=== PATIENT | female | born 1975 | race African-American/Black ===

== ENCOUNTER 2025-03-15 15:09 | Inpatient (IN) | payer MEDICAID ==
[2025-03-15] VITALS (9 sets, daily range): BP systolic 101–111; BP diastolic 63–74; PULSE 53–61; RESP 9–23; TEMP 36.22512–36.44736; O2SAT 98–100
[~2025-03-15] VITALS: Ht 167.6 cm; Wt 55.8 kg
[2025-03-15 16:20] LABS: BASOPHILS % 0.5 % (0.0-2.0); EOSINOPHILS % 0.4 % (0.0-5.0); LYMPHOCYTES % 11.4 % (20.0-50.0); MEAN PLATELET VOLUME 9.1 fl (7.4-10.4); MONOCYTES % 4.2 % (2.0-8.0); NEUTROPHILS % 83.5 % (40.0-76.0); PLATELET 85 x1000/uL (130-400); RED BLOOD CELL COUNT 1.58 mill/uL (4.2-5.4); RED CELL DISTRIBUTION WIDTH 19.3 % (11.6-14.6)
[2025-03-15 16:22] LABS: HEMOGLOBIN. 5.0 g/dL (12.0-16.0)
[2025-03-15 16:23] LABS: ADD RBC MORPHOLOGY YES; HEMATOCRIT. 17.7 % (36.0-48.0)
[2025-03-15 16:34] LABS: PLATELET ESTIMATE DECREASED
[2025-03-15 16:38] LABS: BILIRUBIN DIRECT 8.2 mg/dL (<=3.0); BILIRUBIN TOTAL 11.6 mg/dL (0.1-1.0); PROTEIN TOTAL 7.7 g/dL (6.0-8.3)
[2025-03-15 16:48] LABS: TROPONIN I HIGH SENSITIVITY 4 ng/L (3.0-34); UREA NITROGEN BLOOD 89 mg/dL (9-23)
[2025-03-15 16:49] LABS: ASPARTATE AMINOTRANSFERASE 65 IU/L (<34)
[2025-03-15] MEDS ORDERED: DEXTROSE 50% WATER 50ML SYRINGE IV ONE (16:55)
[2025-03-15 16:56] LABS: CREATININE 5.7 mg/dL (0.6-1.0)
[2025-03-15] MEDS: DEXTROSE 50% WATER 50ML SYRINGE IV ONE ×2 (17:11→19:52)
[2025-03-15] MEDS: SODIUM CHLORIDE 0.9% (SEPSIS BOLUS) IV ONE (17:19)
[2025-03-15] MEDS: SODIUM CHLORIDE 0.9% 1,000 ML IV ONE (17:20)
[2025-03-15] MEDS: DEXT 10% WATER 1,000 ML IV SCH (17:30)
[2025-03-15] MEDS: PIPERACILLIN/TAZO 3.375G/50ML 50 ML IV ONE (17:30)
[2025-03-15 18:02] LABS: TROPONIN I HIGH SENSITIVITY 4 ng/L (3.0-34)
[2025-03-15] MEDS: VANCOMYCIN 1G PREMIX 200 ML IV ONE (18:24)
[2025-03-15] MEDS ORDERED: NOREPINEPHRINE 8 MG in DEXT 5% WATER 242 ML IV PRN (18:45)
[2025-03-15 18:48] LABS: BG BASE EXCESS -21.9 mmol/L (-2.0-3.0); BG CARBOXYHEMOGLOBIN 2.5 % (0.5-1.5); BG DEOXYHEMOGLOBIN 2.6 % (0.0-5.0); BG FRACTION INSPIRED OXYGEN 21; BG HCO3 ACT 7.8 mmol/L (21.0-28.0); BG METHEMOGLOBIN 0.1 % (0.5-1.5); BG OXYGEN SATURATION 97.3 % (94.0-98.0); BG OXYHEMOGLOBIN 94.8 % (94.0-98.0); BG PCO2 34.3 mmHg (32.0-45.0); BG PH 6.972 (7.350-7.450); BG PO2 112.7 mmHg (83.0-108.0); BG SAMPLE SITE RIGHT RADIAL; BG TOTAL HEMOGLOBIN 5.7 g/dL (12.0-16.0); BG VENT MODE ROOM AIR
[2025-03-15] MEDS ORDERED: NOREPINEPHRINE 8MG/250ML PMX 250 ML IV PRN (19:15)
[2025-03-15 19:49] LABS: HCG SCREEN NEGATIVE
[2025-03-15] MEDS: SODIUM BICARBONATE 8.4% 50MEQ/50ML SYR IV NR (19:52)
[2025-03-15] MEDS: CALCIUM GLUCONATE 1GM PREMIX 50 ML IV ONE (19:52)
[2025-03-15] MEDS: SODIUM BICARBONATE 8.4% 50MEQ/50ML SYR IV ONE (19:52)
[2025-03-15] MEDS: INSULIN REGULAR (HUMULIN R) 1000UNITS/10ML VIAL IV ONE (19:53)
[2025-03-15] MEDS ORDERED: HYDROCODONE/ACETAMINOPHEN 5/325MG TABLET PO PRN (20:11)
[2025-03-15 20:15] LABS: INR 1.2
[2025-03-15] MEDS ORDERED: ONDANSETRON HCL 4MG/2ML INJ IV PRN (20:15)
[2025-03-15] MEDS ORDERED: MAGNESIUM/ALUMINUM HYDROXIDE/SIMETHICONE 30ML UDC PO PRN (20:15)
[2025-03-15] MEDS ORDERED: ZOLPIDEM TARTRATE 5MG TABLET PO PRN (21:00)
[2025-03-15] MEDS: PIPERACILLIN/TAZO 3.375G/50ML 50 ML IV SCH (23:33)
[2025-03-16] VITALS (55 sets, daily range): BP systolic 97–152; BP diastolic 61–94; PULSE 53–64; RESP 7–19; TEMP 36.2–36.6; O2SAT 87–100
[2025-03-16] MEDS: SODIUM BICARBONATE 100 MEQ in SODIUM CHLORIDE 0.45% 900 ML IV SCH (00:17)
[2025-03-16] MEDS: HYDROCORTISONE SOD SUCCINATE 100 MG/2 ML VIAL IV SCH (00:18)
[2025-03-16 04:45] LABS: UREA NITROGEN BLOOD 77 mg/dL (9-23)
[2025-03-16 04:52] LABS: CREATININE 5.5 mg/dL (0.6-1.0)
[2025-03-16] MEDS ORDERED: PIPERACILLIN/TAZO 3.375G/50ML 50 ML IV SCH (09:00)
[2025-03-16] MEDS: PANTOPRAZOLE SODIUM 40 MG/VIAL IV SCH (09:33)
[2025-03-16 10:02] LABS: BG BASE EXCESS -18.6 mmol/L (-2.0-3.0); BG CARBOXYHEMOGLOBIN 1.2 % (0.5-1.5); BG DEOXYHEMOGLOBIN 2.8 % (0.0-5.0); BG FRACTION INSPIRED OXYGEN 21; BG HCO3 ACT 10.9 mmol/L (21.0-28.0); BG METHEMOGLOBIN 0.3 % (0.5-1.5); BG OXYGEN SATURATION 97.2 % (94.0-98.0); BG OXYHEMOGLOBIN 95.7 % (94.0-98.0); BG PCO2 40.0 mmHg (32.0-45.0); BG PH 7.054 (7.350-7.450); BG PO2 105.7 mmHg (83.0-108.0); BG SAMPLE SITE RIGHT RADIAL; BG TOTAL HEMOGLOBIN 10.7 g/dL (12.0-16.0); BG VENT MODE ROOM AIR
[2025-03-16 10:12] LABS: RED BLOOD CELL COUNT 3.45 mill/uL (4.2-5.4); RED CELL DISTRIBUTION WIDTH 19.0 % (11.6-14.6)
[2025-03-16] MEDS: SODIUM BICARBONATE 8.4% 50MEQ/50ML SYR IV NR (11:19)
[2025-03-16] MEDS ORDERED: NALOXONE HCL 0.4MG/ML VIAL IV PRN (14:45)
[2025-03-16] MEDS: BLOOD SUGAR DIAGNOSTIC STRIP TEST SCH (18:00)
[2025-03-16] MEDS: LACTULOSE 20G/30ML UDC PO SCH (21:04)
[2025-03-17] VITALS (31 sets, daily range): BP systolic 90–120; BP diastolic 48–79; PULSE 56–63; RESP 8–21; TEMP 36.7–37; O2SAT 66–100
[2025-03-17 10:43] LABS: BG BASE EXCESS -14.7 mmol/L (-2.0-3.0); BG CARBOXYHEMOGLOBIN 1.5 % (0.5-1.5); BG DEOXYHEMOGLOBIN 2.7 % (0.0-5.0); BG FRACTION INSPIRED OXYGEN 21; BG HCO3 ACT 13.6 mmol/L (21.0-28.0); BG METHEMOGLOBIN 0.0 % (0.5-1.5); BG OXYGEN SATURATION 97.3 % (94.0-98.0); BG OXYHEMOGLOBIN 95.8 % (94.0-98.0); BG PCO2 42.0 mmHg (32.0-45.0); BG PH 7.129 (7.350-7.450); BG PO2 110.9 mmHg (83.0-108.0); BG SAMPLE SITE RIGHT RADIAL; BG TOTAL HEMOGLOBIN 10.0 g/dL (12.0-16.0); BG VENT MODE ROOM AIR
[2025-03-17 13:36] LABS: PLATELET 43 x1000/uL (130-400)
[2025-03-17 17:37] LABS: RED BLOOD CELL COUNT 3.05 mill/uL (4.2-5.4); RED CELL DISTRIBUTION WIDTH 19.6 % (11.6-14.6)
[2025-03-17 17:49] LABS: PLATELET 40 x1000/uL (130-400)
[2025-03-17 18:05] LABS: FOLIC ACID (FOLATE) SERUM 13.71 ng/mL (>5.38)
[2025-03-17 18:06] LABS: VITAMIN B12 SERUM 1395 pg/mL (211-911)
[2025-03-17 19:42] LABS: UREA NITROGEN BLOOD 100.0 mg/dL (9-23)
[2025-03-17 19:45] LABS: CREATININE 6.0 mg/dL (0.6-1.0)
[2025-03-17 21:10] LABS: ASPARTATE AMINOTRANSFERASE 69 IU/L (<34); BILIRUBIN DIRECT 7.4 mg/dL (<=3.0); BILIRUBIN TOTAL 8.7 mg/dL (0.1-1.0); PROTEIN TOTAL 7.6 g/dL (6.0-8.3)
[2025-03-18] VITALS (30 sets, daily range): BP systolic 87–126; BP diastolic 50–77; PULSE 50–110; RESP 6–19; TEMP 36.1–37.2; O2SAT 81–100
[2025-03-18] MEDS ORDERED: HYDROCORTISONE SOD SUCCINATE 100 MG/2 ML VIAL IV SCH (09:00)
[2025-03-18] MEDS: RIFAXIMIN 550 MG TABLET PO SCH (09:08)
[2025-03-18 09:39] LABS: ASPARTATE AMINOTRANSFERASE 53 IU/L (<34)
[2025-03-18 09:40] LABS: BILIRUBIN DIRECT 6.0 mg/dL (<=3.0); PROTEIN TOTAL 7.0 g/dL (6.0-8.3)
[2025-03-18 10:19] LABS: BILIRUBIN TOTAL 6.9 mg/dL (0.1-1.0)
[2025-03-18] MEDS: VANCOMYCIN 750MG PREMIX 150 ML IV SCH (10:25)
[2025-03-18] MEDS: LACTULOSE 20G/30ML UDC PO SCH (14:45)
[2025-03-19] VITALS: BP 96/60; PULSE 54; RESP 18; TEMP 36.3; O2SAT 99
[2025-03-19 04:00] VITALS: BP 90/52; PULSE 53; RESP 20; TEMP 36.4; O2SAT 98
[2025-03-19 08:00] VITALS: BP 82/39; PULSE 53; RESP 18; TEMP 36.6; O2SAT 96
[2025-03-19] MEDS: SODIUM HYPOCHLORITE 0.125% 473ML SOLUTION TOP SCH (09:00)
[2025-03-19 10:16] LABS: ASPARTATE AMINOTRANSFERASE 25 IU/L (<34); BILIRUBIN DIRECT 4.9 mg/dL (<=3.0); BILIRUBIN TOTAL 6.5 mg/dL (0.1-1.0); PROTEIN TOTAL 6.2 g/dL (6.0-8.3)
[2025-03-19 12:00] VITALS: BP 90/48; PULSE 51; RESP 18; TEMP 36.7; O2SAT 96
[2025-03-19 16:00] VITALS: BP 80/40; PULSE 51; RESP 18; TEMP 36.7; O2SAT 96
[2025-03-19 20:00] VITALS: BP 100/58; PULSE 51; RESP 20; TEMP 36; O2SAT 100
[2025-03-19] MEDS: SODIUM BICARBONATE 100 MEQ in SODIUM CHLORIDE 0.45% 900 ML IV SCH (22:21)
[2025-03-20] VITALS: BP 96/50; PULSE 50; RESP 18; TEMP 36.2; O2SAT 99
[2025-03-20] MEDS ORDERED: DEXTROSE 50% WATER 50ML SYRINGE IV PRN (01:15)
[2025-03-20] MEDS: INSULIN LISPRO 100 UNITS/ML SUBCUT SCH (02:16)
[2025-03-20 04:00] VITALS: BP 96/53; PULSE 52; RESP 18; TEMP 36.3; O2SAT 99
[2025-03-20] MEDS: BLOOD SUGAR DIAGNOSTIC STRIP TEST SCH (06:26)
[2025-03-20] MEDS ORDERED: INSULIN LISPRO 100 UNITS/ML SUBCUT SCH (07:40)
[2025-03-20 08:00] VITALS: BP 97/60; PULSE 60; RESP 18; TEMP 36.6; O2SAT 97
[2025-03-20 08:15] LABS: RED BLOOD CELL COUNT 2.44 mill/uL (4.2-5.4); RED CELL DISTRIBUTION WIDTH 19.2 % (11.6-14.6)
[2025-03-20 08:25] LABS: ASPARTATE AMINOTRANSFERASE 136 IU/L (<34); BILIRUBIN DIRECT 6.1 mg/dL (<=3.0); BILIRUBIN TOTAL 7.0 mg/dL (0.1-1.0); PROTEIN TOTAL 7.0 g/dL (6.0-8.3)
[2025-03-20 09:35] LABS: PLATELET 23 x1000/uL (130-400)
[2025-03-20 09:48] LABS: UREA NITROGEN BLOOD 104 mg/dL (9-23)
[2025-03-20 09:49] LABS: CREATININE 6.6 mg/dL (0.6-1.0)
[2025-03-20 12:00] VITALS: BP 97/62; PULSE 60; RESP 17; TEMP 36.7; O2SAT 100
[2025-03-20 16:00] VITALS: BP 100/60; PULSE 65; RESP 17; TEMP 36.7; O2SAT 100
[2025-03-20 20:00] VITALS: BP 98/60; PULSE 61; RESP 18; TEMP 36.3; O2SAT 96
[2025-03-21] VITALS: BP 99/66; PULSE 68; RESP 19; TEMP 37; O2SAT 100
[2025-03-21 04:00] VITALS: BP 100/60; PULSE 76; RESP 19; TEMP 36.6; O2SAT 100
[2025-03-21 06:16] LABS: HEMATOCRIT. 21.4 % (36.0-48.0); MEAN PLATELET VOLUME 10.2 fl (7.4-10.4); RED BLOOD CELL COUNT 2.28 mill/uL (4.2-5.4); RED CELL DISTRIBUTION WIDTH 19.1 % (11.6-14.6)
[2025-03-21 06:18] LABS: INR 1.3
[2025-03-21 06:35] LABS: UREA NITROGEN BLOOD 99 mg/dL (9-23)
[2025-03-21 06:36] LABS: ASPARTATE AMINOTRANSFERASE 60 IU/L (<34)
[2025-03-21 06:37] LABS: BILIRUBIN DIRECT 4.6 mg/dL (<=3.0)
[2025-03-21 06:38] LABS: BILIRUBIN TOTAL 6.3 mg/dL (0.1-1.0); PROTEIN TOTAL 6.2 g/dL (6.0-8.3)
[2025-03-21 06:42] LABS: CREATININE 6.8 mg/dL (0.6-1.0)
[2025-03-21 06:49] LABS: HEMOGLOBIN. 7.0 g/dL (12.0-16.0)
[2025-03-21 06:50] LABS: PLATELET 25 x1000/uL (130-400)
[2025-03-21 07:27] LABS: BAND% 8.0 % (1.0-6.0); EOSINOPHILS % MANUAL 1.0 % (0.0-5.0); LYMPHOCYTES % MANUAL 10.0 % (20.0-60.0); METAMYELOCYTES % 1.0 % (0-0); MONOCYTES % MANUAL 4.0 % (2.0-8.0); NEUTROPHILS % MANUAL 76.0 % (45.0-75.0); NUCLEATED RED BLOOD CELLS 2 /100 WBC; PLATELET ESTIMATE MARKEDLY DECREASED
[2025-03-21 08:00] VITALS: BP 98/54; PULSE 67; RESP 17; TEMP 35.8; O2SAT 100
[2025-03-21 12:00] VITALS: BP 95/50; PULSE 63; RESP 18; TEMP 36.5; O2SAT 100
[2025-03-21 16:00] VITALS: BP 117/70; PULSE 62; RESP 17; TEMP 36.9; O2SAT 100
[2025-03-21 20:00] VITALS: BP 115/63; PULSE 64; RESP 18; TEMP 36.6; O2SAT 96
[2025-03-22] VITALS (15 sets, daily range): BP systolic 97–150; BP diastolic 53–111; PULSE 54–70; RESP 11–18; TEMP 36.28068–36.89184; O2SAT 97–100
[2025-03-22 06:24] LABS: ASPARTATE AMINOTRANSFERASE 60 IU/L (<34)
[2025-03-22 06:25] LABS: BILIRUBIN TOTAL 5.5 mg/dL (0.1-1.0); PROTEIN TOTAL 6.4 g/dL (6.0-8.3)
[2025-03-22 06:26] LABS: MEAN PLATELET VOLUME 9.1 fl (7.4-10.4); RED BLOOD CELL COUNT 2.07 mill/uL (4.2-5.4); RED CELL DISTRIBUTION WIDTH 18.5 % (11.6-14.6)
[2025-03-22 06:52] LABS: HEMATOCRIT. 19.2 % (36.0-48.0); HEMOGLOBIN. 6.3 g/dL (12.0-16.0)
[2025-03-22 06:53] LABS: PLATELET 19 x1000/uL (130-400)
[2025-03-22 07:00] LABS: CREATININE 7.0 mg/dL (0.6-1.0)
[2025-03-22 13:43] LABS: BAND% 4.0 % (1.0-6.0); LYMPHOCYTES % MANUAL 14.0 % (20.0-60.0); MONOCYTES % MANUAL 1.0 % (2.0-8.0); NEUTROPHILS % MANUAL 81.0 % (45.0-75.0); NUCLEATED RED BLOOD CELLS 1 /100 WBC; PLATELET ESTIMATE MARKEDLY DECREASED
[2025-03-22] MEDS: OCTREOTIDE 1,000 MCG in SODIUM CHLORIDE 0.9% 98 ML IV SCH (22:06)
[2025-03-23] VITALS (9 sets, daily range): BP systolic 124–168; BP diastolic 83–96; PULSE 57–61; RESP 7–17; TEMP 36.2–36.5; O2SAT 9–100
[2025-03-23 05:37] LABS: UREA NITROGEN BLOOD 98 mg/dL (9-23)
[2025-03-23 05:39] LABS: ASPARTATE AMINOTRANSFERASE 90 IU/L (<34); BILIRUBIN TOTAL 5.5 mg/dL (0.1-1.0); PROTEIN TOTAL 6.1 g/dL (6.0-8.3)
[2025-03-23 05:47] LABS: CREATININE 6.7 mg/dL (0.6-1.0)
[2025-03-23 06:36] LABS: BASOPHILS % 0.2 % (0.0-2.0); EOSINOPHILS % 0.5 % (0.0-5.0); HEMATOCRIT. 26.0 % (36.0-48.0); HEMOGLOBIN. 8.7 g/dL (12.0-16.0); LYMPHOCYTES % 8.1 % (20.0-50.0); MEAN PLATELET VOLUME 9.4 fl (7.4-10.4); MONOCYTES % 2.3 % (2.0-8.0); NEUTROPHILS % 88.9 % (40.0-76.0); RED BLOOD CELL COUNT 2.86 mill/uL (4.2-5.4); RED CELL DISTRIBUTION WIDTH 17.0 % (11.6-14.6)
[2025-03-23 07:47] LABS: PLATELET 32 x1000/uL (130-400)
[2025-03-23 07:51] LABS: UREA NITROGEN BLOOD 103 mg/dL (9-23)
[2025-03-23] MEDS ORDERED: NALOXONE HCL 0.4MG/ML VIAL IV PRN (14:45)
[2025-03-23] MEDS: MORPHINE SULFATE 2 MG/ML INJ (NOT FOR IM USE) IV PRN (15:00)
[2025-03-24] VITALS (24 sets, daily range): BP systolic 113–168; BP diastolic 63–103; PULSE 51–63; RESP 8–20; TEMP 33.83604–36.6696; O2SAT 95–100
[2025-03-24 05:18] LABS: BASOPHILS % 0.4 % (0.0-2.0); EOSINOPHILS % 0.6 % (0.0-5.0); HEMATOCRIT. 26.6 % (36.0-48.0); HEMOGLOBIN. 8.4 g/dL (12.0-16.0); LYMPHOCYTES % 9.1 % (20.0-50.0); MEAN PLATELET VOLUME 9.3 fl (7.4-10.4); MONOCYTES % 2.5 % (2.0-8.0); NEUTROPHILS % 87.4 % (40.0-76.0); RED BLOOD CELL COUNT 2.85 mill/uL (4.2-5.4); RED CELL DISTRIBUTION WIDTH 18.3 % (11.6-14.6)
[2025-03-24 05:23] LABS: INR 1.4
[2025-03-24 05:58] LABS: UREA NITROGEN BLOOD 81 mg/dL (9-23)
[2025-03-24 05:59] LABS: ASPARTATE AMINOTRANSFERASE 38 IU/L (<34)
[2025-03-24 06:00] LABS: BILIRUBIN DIRECT 4.7 mg/dL (<=3.0); BILIRUBIN TOTAL 5.4 mg/dL (0.1-1.0); PROTEIN TOTAL 6.8 g/dL (6.0-8.3)
[2025-03-24 07:29] LABS: CREATININE 6.7 mg/dL (0.6-1.0)
[2025-03-24 09:32] LABS: BG BASE EXCESS -7.1 mmol/L (-2.0-3.0); BG CARBOXYHEMOGLOBIN 0.6 % (0.5-1.5); BG DEOXYHEMOGLOBIN 4.3 % (0.0-5.0); BG FRACTION INSPIRED OXYGEN 21; BG HCO3 ACT 18.8 mmol/L (21.0-28.0); BG METHEMOGLOBIN 0.3 % (0.5-1.5); BG OXYGEN SATURATION 95.7 % (94.0-98.0); BG OXYHEMOGLOBIN 94.8 % (94.0-98.0); BG PCO2 39.5 mmHg (32.0-45.0); BG PH 7.295 (7.350-7.450); BG PO2 88.6 mmHg (83.0-108.0); BG SAMPLE SITE RIGHT RADIAL; BG TOTAL HEMOGLOBIN 8.3 g/dL (12.0-16.0); BG VENT MODE ROOM AIR
[2025-03-24 10:25] LABS: BASOPHILS % 0.5 % (0.0-2.0); EOSINOPHILS % 0.6 % (0.0-5.0); HEMATOCRIT. 24.0 % (36.0-48.0); HEMOGLOBIN. 7.9 g/dL (12.0-16.0); LYMPHOCYTES % 9.0 % (20.0-50.0); MEAN PLATELET VOLUME 8.9 fl (7.4-10.4); MONOCYTES % 2.5 % (2.0-8.0); NEUTROPHILS % 87.4 % (40.0-76.0); PLATELET 55 x1000/uL (130-400); RED BLOOD CELL COUNT 2.66 mill/uL (4.2-5.4); RED CELL DISTRIBUTION WIDTH 17.5 % (11.6-14.6)
[2025-03-24 10:26] LABS: INR 1.4
[2025-03-24 10:36] LABS: UREA NITROGEN BLOOD 95.0 mg/dL (9-23)
[2025-03-24 10:42] LABS: CREATININE 6.6 mg/dL (0.6-1.0)
[2025-03-24] MEDS: PHYTONADIONE 10MG/ML INJ SUBCUT NR (12:37)
[2025-03-24 13:07] LABS: MITOCHONDRIAL M2 AB <20.0 Units (0.0-20.0)
[2025-03-24] MEDS ORDERED: LABETALOL 5MG/ML 4ML INJ IV PRN (13:30)
[2025-03-24] MEDS ORDERED: HYDROMORPHONE HCL/PF 1MG/ML INJ IV PRN (13:30)
[2025-03-24] MEDS ORDERED: HYDRALAZINE 20MG/ML VIAL IV PRN ×2 (13:30)
[2025-03-24] MEDS ORDERED: ONDANSETRON HCL 4MG/2ML INJ IV PRN (13:30)
[2025-03-24] MEDS ORDERED: MEPERIDINE HCL/PF 25MG/ML CPJ IV PRN (13:30)
[2025-03-24] MEDS ORDERED: FAMOTIDINE 20MG/2ML VIAL IV PRN (13:30)
[2025-03-24] MEDS ORDERED: ACETAMINOPHEN 1,000MG/100ML PREMIX IV PRN (13:30)
[2025-03-24] MEDS ORDERED: PROPOFOL 200MG/20ML VIAL IV ONE (13:33)
[2025-03-24] MEDS ORDERED: GLYCOPYRROLATE 0.2 MG/ML 2ML VIAL ONE (13:44)
[2025-03-24] MEDS ORDERED: ACETAMINOPHEN 1000MG/100ML 100 ML IV PRN ×2 (13:45)
[2025-03-24] MEDS ORDERED: ACETAMINOPHEN 1000MG/100ML 100 ML IV NR (13:45)
[2025-03-24 15:10] LABS: ANTI-MYELOPEROXIDASE AB < 0.2 units (0.0-0.9); ANTI-PROTEINASE 3 ABS < 0.2 units (0.0-0.9)
[2025-03-24] MEDS: METOCLOPRAMIDE HCL 10MG/2ML VIAL IV SCH (17:10)
[2025-03-24] MEDS: DEXTROSE 50% WATER 50ML SYRINGE IV PRN (17:10)
[2025-03-25] VITALS (25 sets, daily range): BP systolic 115–175; BP diastolic 70–99; PULSE 62–76; RESP 8–16; TEMP 36.114–37.8; O2SAT 96–100
[2025-03-25 09:05] LABS: INR 1.2
[2025-03-25 09:06] LABS: BASOPHILS % 0.6 % (0.0-2.0); EOSINOPHILS % 0.8 % (0.0-5.0); HEMATOCRIT. 21.7 % (36.0-48.0); HEMOGLOBIN. 7.5 g/dL (12.0-16.0); LYMPHOCYTES % 11.0 % (20.0-50.0); MONOCYTES % 4.5 % (2.0-8.0); NEUTROPHILS % 83.1 % (40.0-76.0); RED BLOOD CELL COUNT 2.43 mill/uL (4.2-5.4); RED CELL DISTRIBUTION WIDTH 16.5 % (11.6-14.6)
[2025-03-25 09:09] LABS: UREA NITROGEN BLOOD 81.0 mg/dL (9-23)
[2025-03-25 09:26] LABS: CREATININE 6.4 mg/dL (0.6-1.0)
[2025-03-25 09:46] LABS: MEAN PLATELET VOLUME 9.4 fl (7.4-10.4); PLATELET 54 x1000/uL (130-400)
[2025-03-25] MEDS ORDERED: HEPARIN 1000 UNITS/ML 10ML ONE (09:49)
[2025-03-25] MEDS ORDERED: LIDOCAINE HCL 1% 10 MG/ML 10ML VIAL ONE (09:49)
[2025-03-25 11:56] LABS: HEPATITIS A AB IGM NEGATIVE (Negative)
[2025-03-25 11:57] LABS: HEPATITIS B CORE AB IGM NEGATIVE (Negative)
[2025-03-25 11:58] LABS: HEPATITIS C AB NON REACTIVE (Neg) (Negative)
[2025-03-25 13:08] LABS: SACCHAROMYCES CEREVISIAE IGG 91.7 Units (0.0-24.9); SACCHAROMYCES CEREVISIAE IGM 164.8 Units (0.0-24.9)
[2025-03-25 13:16] LABS: PLATELET 33 x1000/uL (130-400)
[2025-03-25] MEDS: MANNITOL 12.5G (25%) VIAL 50ML IV NR (13:21)
[2025-03-25 17:07] LABS: ATYPICAL P-ANCA <1:20 titer (Neg:<1:20); CYTOPLASMIC C-ANCA <1:20 titer (Neg:<1:20); PERINUCLEAR P-ANCA <1:20 titer (Neg:<1:20)
[2025-03-25] MEDS: PANTOPRAZOLE 40MG DR TABLET PO SCH (23:49)
[2025-03-26] VITALS (11 sets, daily range): BP systolic 113–173; BP diastolic 62–93; PULSE 58–65; RESP 10–17; TEMP 36.1–36.4; O2SAT 98–100
[2025-03-26 09:07] LABS: ALK PHOS TOTAL 1724 IU/L (44-121)
[2025-03-27] VITALS (22 sets, daily range): BP systolic 93–173; BP diastolic 66–148; PULSE 62–73; RESP 9–20; TEMP 36.3–36.89184; O2SAT 100
[2025-03-27 05:36] LABS: BASOPHILS % 0.7 % (0.0-2.0); EOSINOPHILS % 0.9 % (0.0-5.0); LYMPHOCYTES % 15.0 % (20.0-50.0); MEAN PLATELET VOLUME 10.1 fl (7.4-10.4); MONOCYTES % 3.4 % (2.0-8.0); NEUTROPHILS % 80.0 % (40.0-76.0); RED BLOOD CELL COUNT 1.96 mill/uL (4.2-5.4); RED CELL DISTRIBUTION WIDTH 15.9 % (11.6-14.6)
[2025-03-27 06:05] LABS: CREATININE 4.5 mg/dL (0.6-1.0); UREA NITROGEN BLOOD 56.0 mg/dL (9-23)
[2025-03-27 06:49] LABS: HEMOGLOBIN. 6.0 g/dL (12.0-16.0)
[2025-03-27 06:50] LABS: HEMATOCRIT. 17.8 % (36.0-48.0); PLATELET 43 x1000/uL (130-400)
[2025-03-27] MEDS: CLONIDINE 0.1MG TABLET PO PRN (18:17)
[2025-03-27] MEDS: EPOETIN ALFA-EPBX 10,000 UNITS/ML VIAL SUBCUT SCH (21:57)
[2025-03-28] VITALS (17 sets, daily range): BP systolic 138–188; BP diastolic 69–105; PULSE 63–75; RESP 8–19; TEMP 36.2–37; O2SAT 97–100
[2025-03-28 12:46] LABS: BASOPHILS % 0.7 % (0.0-2.0); EOSINOPHILS % 0.8 % (0.0-5.0); HEMATOCRIT. 21.4 % (36.0-48.0); HEMOGLOBIN. 7.2 g/dL (12.0-16.0); LYMPHOCYTES % 12.4 % (20.0-50.0); MEAN PLATELET VOLUME 9.8 fl (7.4-10.4); MONOCYTES % 3.2 % (2.0-8.0); NEUTROPHILS % 82.9 % (40.0-76.0); RED BLOOD CELL COUNT 2.43 mill/uL (4.2-5.4); RED CELL DISTRIBUTION WIDTH 16.5 % (11.6-14.6)
[2025-03-28 12:52] LABS: PLATELET 43 x1000/uL (130-400)
[2025-03-28 13:01] LABS: CREATININE 3.4 mg/dL (0.6-1.0); UREA NITROGEN BLOOD 40.0 mg/dL (9-23)
[2025-03-28] MEDS ORDERED: NALOXONE HCL 0.4MG/ML VIAL IV PRN (19:45)
[2025-03-28] MEDS: MORPHINE SULFATE 2 MG/ML INJ (NOT FOR IM USE) IV PRN (20:32)
[2025-03-29] VITALS: BP 168/89; PULSE 71; RESP 12; TEMP 36.3; O2SAT 100
[2025-03-29 04:00] VITALS: BP 172/95; PULSE 71; RESP 18; TEMP 36.4; O2SAT 100
[2025-03-29 04:07] LABS: ALK PHOS BONE FRACTION 21 % (14-68); ALK PHOS INTESTINAL FRACTION 0 % (0-18); ALK PHOS LIVER FRACTION 79 % (18-85)
[2025-03-29] MEDS: MORPHINE SULFATE 4 MG/ML INJ (FOR IV/IM USE) IV PRN (05:46)
[2025-03-29] MEDS: ACETAMINOPHEN 325MG TABLET PO PRN (07:17)
[2025-03-29 08:00] VITALS: BP 182/95; PULSE 67; RESP 17; TEMP 36.6; O2SAT 100
[2025-03-29 12:28] LABS: BASOPHILS % 0.8 % (0.0-2.0); EOSINOPHILS % 0.8 % (0.0-5.0); HEMATOCRIT. 22.0 % (36.0-48.0); HEMOGLOBIN. 7.4 g/dL (12.0-16.0); LYMPHOCYTES % 12.7 % (20.0-50.0); MEAN PLATELET VOLUME 9.8 fl (7.4-10.4); MONOCYTES % 4.7 % (2.0-8.0); NEUTROPHILS % 81.0 % (40.0-76.0); PLATELET 51 x1000/uL (130-400); RED BLOOD CELL COUNT 2.48 mill/uL (4.2-5.4); RED CELL DISTRIBUTION WIDTH 16.5 % (11.6-14.6)
[2025-03-29] MEDS: AMLODIPINE 2.5MG TABLET PO SCH (12:36)
[2025-03-29 12:52] LABS: CREATININE 3.4 mg/dL (0.6-1.0); UREA NITROGEN BLOOD 38 mg/dL (9-23)
[2025-03-29 12:54] LABS: ASPARTATE AMINOTRANSFERASE 17 IU/L (<34); BILIRUBIN DIRECT 3.7 mg/dL (<=3.0); BILIRUBIN TOTAL 4.6 mg/dL (0.1-1.0); PROTEIN TOTAL 6.6 g/dL (6.0-8.3)
[2025-03-29 16:00] VITALS: BP 160/89; PULSE 66; RESP 17; TEMP 36.7; O2SAT 98
[2025-03-29 20:00] VITALS: BP 171/99; PULSE 71; RESP 18; TEMP 36.3; O2SAT 100
[2025-03-29] MEDS: EPOETIN ALFA-EPBX 4,000 UNITS/ML VIAL SUBCUT SCH (21:26)
[2025-03-29 23:30] VITALS: BP 175/97; PULSE 65; RESP 20; TEMP 36.50292; O2SAT 97
[2025-03-30] VITALS (9 sets, daily range): BP systolic 81–174; BP diastolic 54–96; PULSE 65–72; RESP 17–20; TEMP 36.1–36.8; O2SAT 72–100
[2025-03-30] MEDS: AMLODIPINE 2.5MG TABLET PO SCH (12:47)
[2025-03-30] MEDS: DEXT 5%/0.45% NACL 1000ML 1,000 ML IV SCH (14:45)
[2025-03-31 04:00] VITALS: BP 188/113; PULSE 66; RESP 18; TEMP 36.2; O2SAT 100
[2025-03-31] MEDS: AMLODIPINE 5MG TABLET PO SCH (09:23)
[2025-03-31 11:13] LABS: BASOPHILS % 0.8 % (0.0-2.0); EOSINOPHILS % 0.8 % (0.0-5.0); HEMATOCRIT. 23.2 % (36.0-48.0); HEMOGLOBIN. 7.6 g/dL (12.0-16.0); LYMPHOCYTES % 10.6 % (20.0-50.0); MEAN PLATELET VOLUME 9.9 fl (7.4-10.4); MONOCYTES % 3.3 % (2.0-8.0); NEUTROPHILS % 84.5 % (40.0-76.0); PLATELET 67 x1000/uL (130-400); RED BLOOD CELL COUNT 2.58 mill/uL (4.2-5.4); RED CELL DISTRIBUTION WIDTH 16.3 % (11.6-14.6)
[2025-03-31 11:30] LABS: CREATININE 3.2 mg/dL (0.6-1.0); UREA NITROGEN BLOOD 36.0 mg/dL (9-23)
[2025-03-31 11:53] LABS: ASPARTATE AMINOTRANSFERASE 18 IU/L (<34)
[2025-03-31 11:54] LABS: BILIRUBIN DIRECT 3.5 mg/dL (<=3.0); BILIRUBIN TOTAL 4.3 mg/dL (0.1-1.0); PROTEIN TOTAL 6.5 g/dL (6.0-8.3)
[2025-03-31 12:00] VITALS: BP 134/71; PULSE 65; RESP 19; TEMP 36.4; O2SAT 100
[2025-03-31 13:45] LABS: INR 1.1
[2025-03-31 16:00] VITALS: BP 137/91; PULSE 71; RESP 18; TEMP 36.4; O2SAT 100
[2025-03-31 20:00] VITALS: BP 155/78; PULSE 79; RESP 18; TEMP 36.1; O2SAT 99
[2025-04-01] VITALS (26 sets, daily range): BP systolic 98–178; BP diastolic 62–100; PULSE 61–71; RESP 9–21; TEMP 35.66952–37.1; O2SAT 95–100
[2025-04-01 06:00] LABS: CREATININE 3.3 mg/dL (0.6-1.0); UREA NITROGEN BLOOD 37.0 mg/dL (9-23)
[2025-04-01 06:02] LABS: BASOPHILS % 0.7 % (0.0-2.0); EOSINOPHILS % 0.7 % (0.0-5.0); LYMPHOCYTES % 11.6 % (20.0-50.0); MEAN PLATELET VOLUME 9.5 fl (7.4-10.4); MONOCYTES % 4.3 % (2.0-8.0); NEUTROPHILS % 82.7 % (40.0-76.0); PLATELET 61 x1000/uL (130-400); RED BLOOD CELL COUNT 2.21 mill/uL (4.2-5.4); RED CELL DISTRIBUTION WIDTH 15.9 % (11.6-14.6)
[2025-04-01] MEDS ORDERED: CEFAZOLIN 1000MG PREMIX 50 ML IV NR (06:45)
[2025-04-01] MEDS ORDERED: LIDOCAINE HCL 1% 10 MG/ML 10ML VIAL ONE ×3 (06:46→14:10)
[2025-04-01 06:50] LABS: HEMOGLOBIN. 6.5 g/dL (12.0-16.0)
[2025-04-01 06:51] LABS: HEMATOCRIT. 19.8 % (36.0-48.0)
[2025-04-01 08:29] LABS: ASPARTATE AMINOTRANSFERASE 14 IU/L (<34)
[2025-04-01 08:30] LABS: BILIRUBIN DIRECT 3.0 mg/dL (<=3.0); BILIRUBIN TOTAL 3.6 mg/dL (0.1-1.0); PROTEIN TOTAL 5.9 g/dL (6.0-8.3)
[2025-04-01] MEDS ORDERED: FENTANYL CITRATE/PF 50MCG/ML 2ML VIAL ONE (13:48)
[2025-04-01] MEDS ORDERED: CEFAZOLIN 1000MG PREMIX 50 ML IV ONE (13:48)
[2025-04-01] MEDS: CEFAZOLIN 1000MG PREMIX 50 ML IV ONE (13:54)
[2025-04-01] MEDS: FENTANYL CITRATE/PF 50MCG/ML 2ML VIAL IV ONE (14:03)
[2025-04-01] MEDS ORDERED: FENTANYL CITRATE/PF 50MCG/ML 2ML VIAL IV SCH (14:15)
[2025-04-01 17:20] LABS: INR 1.0
[2025-04-02] VITALS: BP 128/75; PULSE 61; RESP 19; TEMP 36.3; O2SAT 99
[2025-04-02 04:00] VITALS: BP 161/82; PULSE 71; RESP 20; TEMP 37.2; O2SAT 97
[2025-04-02 08:00] VITALS: BP 167/90; PULSE 71; RESP 18; TEMP 35.9; O2SAT 99
[2025-04-02 12:00] VITALS: BP 145/91; PULSE 66; RESP 18; TEMP 36.1; O2SAT 99
[2025-04-02] MEDS ORDERED: PANT40TA51 PO (13:38)
[2025-04-02] MEDS ORDERED: AMLO5TAB88 PO (13:38)
[2025-04-02] MEDS ORDERED: EPOE40009 SUBCUT (13:38)
[2025-04-02 13:56] VITALS: BP 145/91; PULSE 66; RESP 18; TEMP 97
[2025-04-02 16:00] VITALS: BP 150/87; PULSE 68; RESP 18; TEMP 36.1; O2SAT 98
== END 2025-04-02 18:13 | DRG 720 ==
LOC: ER 15:09 → EDBEDREQ 15:34 → MICUSO 18:53 → EDBEDREQSVC 18:57 → EDBEDREQ 18:57 → EDBEDREQTM 18:57 → ER 22:15 → 8WST 03-18 19:37 → 5EST 03-22 14:59 → 6EST 03-29 02:01
PROVIDERS: ADMIT Internal Medicine; ATTEND Internal Medicine
PROC: 30233N1 Transfusion of Nonautologous Red Blood Cells into Peripheral Vein, Percutaneous Approach (ICD-10-PCS; 2025-03-15)
PROC: 30233R1 Transfusion of Nonautologous Platelets into Peripheral Vein, Percutaneous Approach (ICD-10-PCS; 2025-03-22)
PROC: 0DB68ZX Excision of Stomach, Via Natural or Artificial Opening Endoscopic, Diagnostic (ICD-10-PCS; 2025-03-24)
PROC: 0DB78ZX Excision of Stomach, Pylorus, Via Natural or Artificial Opening Endoscopic, Diagnostic (ICD-10-PCS; 2025-03-24)
PROC: 30233L1 Transfusion of Nonautologous Fresh Plasma into Peripheral Vein, Percutaneous Approach (ICD-10-PCS; 2025-03-24)
PROC: 02H633Z Insertion of Infusion Device into Right Atrium, Percutaneous Approach (ICD-10-PCS; principal; 2025-03-25)
PROC: B5181ZA Fluoroscopy of Superior Vena Cava using Low Osmolar Contrast, Guidance (ICD-10-PCS; 2025-03-25)
PROC: B548ZZA Ultrasonography of Superior Vena Cava, Guidance (ICD-10-PCS; 2025-03-25)
PROC: 5A1D70Z Performance of Urinary Filtration, Intermittent, Less than 6 Hours Per Day (ICD-10-PCS; 2025-03-25)
PROC: 5A1D70Z Performance of Urinary Filtration, Intermittent, Less than 6 Hours Per Day (ICD-10-PCS; 2025-03-27)
PROC: 5A1D70Z Performance of Urinary Filtration, Intermittent, Less than 6 Hours Per Day (ICD-10-PCS; 2025-03-29)
PROC: 0JH63XZ Insertion of Tunneled Vascular Access Device into Chest Subcutaneous Tissue and Fascia, Percutaneous Approach (ICD-10-PCS; 2025-04-01)
PROC: 02HV33Z Insertion of Infusion Device into Superior Vena Cava, Percutaneous Approach (ICD-10-PCS; 2025-04-01)
PROC: B5181ZA Fluoroscopy of Superior Vena Cava using Low Osmolar Contrast, Guidance (ICD-10-PCS; 2025-04-01)
PROC: 02PAX3Z Removal of Infusion Device from Heart, External Approach (ICD-10-PCS; 2025-04-01)
PROC: 5A1D70Z Performance of Urinary Filtration, Intermittent, Less than 6 Hours Per Day (ICD-10-PCS; 2025-04-01)
DX: A41.9 Sepsis, unspecified organism (principal); R65.21 Severe sepsis with septic shock; G92.8 Other toxic encephalopathy; K83.1 Obstruction of bile duct; E87.20 Acidosis, unspecified; K29.31 Chronic superficial gastritis with bleeding; K29.80 Duodenitis without bleeding; R18.8 Other ascites; D69.59 Other secondary thrombocytopenia; E11.649 Type 2 diabetes mellitus with hypoglycemia without coma; N17.9 Acute kidney failure, unspecified; E87.5 Hyperkalemia; N18.9 Chronic kidney disease, unspecified; N39.0 Urinary tract infection, site not specified; K74.60 Unspecified cirrhosis of liver; D53.9 Nutritional anemia, unspecified; I12.9 Hypertensive chronic kidney disease with stage 1 through stage 4 chronic kidney disease, or unspecified chronic kidney disease; D50.9 Iron deficiency anemia, unspecified; E11.621 Type 2 diabetes mellitus with foot ulcer; E86.9 Volume depletion, unspecified; K76.0 Fatty (change of) liver, not elsewhere classified; L97.519 Non-pressure chronic ulcer of other part of right foot with unspecified severity; F10.10 Alcohol abuse, uncomplicated; K76.82 Hepatic encephalopathy; E11.22 Type 2 diabetes mellitus with diabetic chronic kidney disease; K70.9 Alcoholic liver disease, unspecified; K62.89 Other specified diseases of anus and rectum; E78.5 Hyperlipidemia, unspecified; Y90.0 Blood alcohol level of less than 20 mg/100 ml; F17.200 Nicotine dependence, unspecified, uncomplicated; Z79.4 Long term (current) use of insulin; Z88.1 Allergy status to other antibiotic agents; Z99.2 Dependence on renal dialysis; Z79.899 Other long term (current) drug therapy
CPT/HCPCS: 36415; 36430; 36558; 36600; 71045; 73610; 74176; 76700; 77001; 78278; 80048; 80053; 80076; 80202; 80320; 82010; 82140; 82150; 82248; 82270; 82375; 82533; 82550; 82607; 82728; 82746; 82805; 82962; 82977; 83516; 83520; 83540; 83550; 83605; 83735; 83880; 84075; 84080; 84145; 84484; 84703; 85014; 85018; 85025; 85027; 85044; 85049; 85384; 86256; 86671; 86705; 86706; 86709; 86850; 86900; 86920; 86927; 87070; 87077; 87186; 87340; 88305; 88312; 88313; 90935; 93005; 93923; 93970; 99152; 99291; A4606; A6449; A9560; C1750; C1752; C1769; J0612; J0690; J0885; J1642; J1644; J1720; J1815; J2003; J2150; J2270; J2354; J2470; J2543; J2704; J2765; J3010; J3373; J3430; J3490; J7030; J7050; P9016; P9017; P9034; G0480; G0500

== ENCOUNTER 2025-05-22 10:10 | Inpatient (IN) | payer MEDICAID ==
[~2025-05-22] VITALS: Ht 154.9 cm; Wt 42.6 kg
[2025-05-22] VITALS (38 sets, daily range): BP systolic 52–166; BP diastolic 44–102; PULSE 49–79; RESP 5–17; TEMP 36.6–36.7; O2SAT 97–100
[~2025-05-22 10:10] MED LIST: EPOE40009 SUBCUT; FLUD0.1T PO; MIDO10TA3 PO; PANT40TA51 PO
[2025-05-22] MEDS: SODIUM CHLORIDE 0.9% 500 ML IV ONE ×2 (10:31→12:49)
[2025-05-22] MEDS: PIPERACILLIN/TAZO 3.375G/50ML 50 ML IV ONE (10:53)
[2025-05-22 11:02] LABS: BASOPHILS % 0.3 % (0.0-2.0); EOSINOPHILS % 0.1 % (0.0-5.0); HEMATOCRIT. 31.2 % (36.0-48.0); HEMOGLOBIN. 9.7 g/dL (12.0-16.0); LYMPHOCYTES % 13.3 % (20.0-50.0); MEAN PLATELET VOLUME 9.7 fl (7.4-10.4); MONOCYTES % 2.1 % (2.0-8.0); NEUTROPHILS % 84.2 % (40.0-76.0); RED BLOOD CELL COUNT 3.21 mill/uL (4.2-5.4); RED CELL DISTRIBUTION WIDTH 21.8 % (11.6-14.6)
[2025-05-22] MEDS ORDERED: LIDOCAINE HCL 1% 10 MG/ML 10ML VIAL ONE (11:08)
[2025-05-22 11:09] LABS: INR 1.0
[2025-05-22] MEDS: VANCOMYCIN 1G PREMIX 200 ML IV ONE (11:12)
[2025-05-22 11:17] LABS: CREATININE 3.5 mg/dL (0.6-1.0); UREA NITROGEN BLOOD 31 mg/dL (9-23)
[2025-05-22 11:19] LABS: ASPARTATE AMINOTRANSFERASE 110 IU/L (<34); BILIRUBIN DIRECT 0.8 mg/dL (<=3.0); BILIRUBIN TOTAL 1.0 mg/dL (0.1-1.0); PROTEIN TOTAL 6.7 g/dL (6.0-8.3)
[2025-05-22] MEDS ORDERED: NOREPINEPHRINE 8 MG in DEXT 5% WATER 242 ML IV PRN (12:00)
[2025-05-22] MEDS: NOREPINEPHRINE 8MG/250ML PMX 250 ML IV PRN (12:05)
[2025-05-22 12:15] LABS: PLATELET 42 x1000/uL (130-400)
[2025-05-22 13:02] LABS: HEPATITIS A AB IGM NEGATIVE (Negative)
[2025-05-22 13:03] LABS: HEPATITIS B CORE AB IGM NEGATIVE (Negative); HEPATITIS C AB NON REACTIVE (Neg) (Negative)
[2025-05-22] MEDS ORDERED: MAGNESIUM/ALUMINUM HYDROXIDE/SIMETHICONE 30ML UDC PO PRN (15:00)
[2025-05-22] MEDS ORDERED: HYDROCODONE/ACETAMINOPHEN 5/325MG TABLET PO PRN (15:00)
[2025-05-22] MEDS ORDERED: ZOLPIDEM TARTRATE 5MG TABLET PO PRN (15:00)
[2025-05-22] MEDS ORDERED: ONDANSETRON HCL 4MG/2ML INJ IV PRN (15:00)
[2025-05-22] MEDS ORDERED: NALOXONE HCL 0.4MG/ML VIAL IV PRN (15:15)
[2025-05-22] MEDS: FLUDROCORTISONE ACETATE 0.1MG TABLET PO SCH (17:27)
[2025-05-22] MEDS: MIDODRINE HCL 5MG TABLET PO SCH (17:28)
[2025-05-22] MEDS: PIPERACILLIN/TAZO 3.375G/50ML 50 ML IV SCH (20:37)
[2025-05-23] VITALS (96 sets, daily range): BP systolic 67–191; BP diastolic 45–103; PULSE 42–126; RESP 9–26; TEMP 36.2–37.2252; O2SAT 80–100
[2025-05-23] MEDS: DOPAMINE 400MG/250ML PREMIX 250 ML IV PRN (05:14)
[2025-05-23 07:07] LABS: HEMATOCRIT. 33.0 % (36.0-48.0); HEMOGLOBIN. 10.3 g/dL (12.0-16.0); MEAN PLATELET VOLUME 9.8 fl (7.4-10.4); PLATELET 52 x1000/uL (130-400); RED BLOOD CELL COUNT 3.36 mill/uL (4.2-5.4); RED CELL DISTRIBUTION WIDTH 21.9 % (11.6-14.6)
[2025-05-23 07:42] LABS: CREATININE 3.7 mg/dL (0.6-1.0); UREA NITROGEN BLOOD 38 mg/dL (9-23)
[2025-05-23 07:44] LABS: ASPARTATE AMINOTRANSFERASE 63 IU/L (<34); BILIRUBIN DIRECT 0.8 mg/dL (<=3.0); BILIRUBIN TOTAL 1.1 mg/dL (0.1-1.0); PROTEIN TOTAL 7.0 g/dL (6.0-8.3)
[2025-05-23 08:09] LABS: CLARITY URINE TURBID (CLEAR); COLOR URINE DARK YELLOW (YELLOW); GLUCOSE URINE NEGATIVE (NEGATIVE); KETONES URINE TRACE (NEGATIVE); LEUKOCYTE ESTERASE URINE 3+ (NEGATIVE); NITRITE URINE NEGATIVE (NEGATIVE); OCCULT BLOOD URINE 3+ (NEGATIVE); PH URINE 6.0 (4.5-8.0); PROTEIN URINE 3+ (NEGATIVE); SPECIFIC GRAVITY URINE 1.016 (1.005-1.030); UROBILINOGEN URINE 0.2 E.U./dL (0.2-1.0)
[2025-05-23] MEDS: KCL 20MEQ/100ML PREMIX 100 ML IV SCH ×2 (08:37→13:35)
[2025-05-23 08:38] LABS: BACTERIA URINE 4+; WBC URINE TNTC /hpf (0-2)
[2025-05-23 08:39] LABS: YEAST URINE 1+
[2025-05-23 08:42] LABS: RBC URINE 0-2 /hpf (0-2)
[2025-05-23 08:43] LABS: SQUAMOUS EPITHELIAL CELL URINE NONE SEEN /lpf (RARE/1+)
[2025-05-23 09:10] LABS: *AMPHETAMINES SCREEN URINE NEGATIVE (NEGATIVE); *BARBITURATES SCREEN URINE NEGATIVE (NEGATIVE); *BENZODIAZEPINES SCREEN URINE NEGATIVE (NEGATIVE); *COCAINE SCREEN URINE NEGATIVE (NEGATIVE); CANNABINOID URINE SCREEN NEGATIVE (NEGATIVE); ECSTASY MDMA SCREEN URINE NEGATIVE (NEGATIVE); METHADONE URINE SCREEN NEGATIVE (NEGATIVE); OPIATES URINE SCREEN NEGATIVE (NEGATIVE); PHENCYCLIDINE URINE SCREEN NEGATIVE (NEGATIVE)
[2025-05-23] MEDS: PANTOPRAZOLE SODIUM 40 MG/VIAL IV SCH (09:55)
[2025-05-23 10:58] LABS: BAND% 6.0 % (1.0-6.0); EOSINOPHILS % MANUAL 1.0 % (0.0-5.0); LYMPHOCYTES % MANUAL 6.0 % (20.0-60.0); MONOCYTES % MANUAL 3.0 % (2.0-8.0); NEUTROPHILS % MANUAL 84.0 % (45.0-75.0); PLATELET ESTIMATE MARKEDLY DECREASED
[2025-05-23] MEDS: CEFEPIME 1GM/50ML 50 ML IV SCH (11:19)
[2025-05-23] MEDS: LACTULOSE 20G/30ML UDC PO SCH (11:19)
[2025-05-23] MEDS: SODIUM BICARBONATE 8.4% 50MEQ/50ML SYR IV SCH ×2 (11:24→13:35)
[2025-05-23] MEDS: VITAMINS A AND D OINT TUBE TOP SCH (21:22)
[2025-05-23] MEDS: NOREPINEPHRINE 8MG/250ML PMX 250 ML IV PRN (22:02)
[2025-05-23 22:12] LABS: HEMATOCRIT. 27.8 % (36.0-48.0); HEMOGLOBIN. 9.1 g/dL (12.0-16.0); MEAN PLATELET VOLUME 9.1 fl (7.4-10.4); RED BLOOD CELL COUNT 3.04 mill/uL (4.2-5.4); RED CELL DISTRIBUTION WIDTH 21.1 % (11.6-14.6)
[2025-05-23 22:29] LABS: CREATININE 3.3 mg/dL (0.6-1.0); UREA NITROGEN BLOOD 46 mg/dL (9-23)
[2025-05-23 22:31] LABS: PHOSPHORUS 5.4 mg/dL (2.5-4.9)
[2025-05-23 22:33] LABS: PLATELET 45 x1000/uL (130-400)
[2025-05-23 22:58] LABS: BAND% 3.0 % (1.0-6.0); LYMPHOCYTES % MANUAL 7.0 % (20.0-60.0); MONOCYTES % MANUAL 2.0 % (2.0-8.0); NEUTROPHILS % MANUAL 88.0 % (45.0-75.0); PLATELET ESTIMATE MARKEDLY DECREASED
[2025-05-23] MEDS: DEXTROSE 50% WATER 50ML SYRINGE IV NR (23:14)
[2025-05-23] MEDS: DEXT 10% WATER 1,000 ML IV SCH (23:15)
[2025-05-24] VITALS (101 sets, daily range): BP systolic 55–178; BP diastolic 46–100; PULSE 51–73; RESP 9–24; TEMP 35.9–36.5; O2SAT 91–100
[2025-05-24 06:50] LABS: HEMATOCRIT. 26.7 % (36.0-48.0); HEMOGLOBIN. 8.8 g/dL (12.0-16.0); MEAN PLATELET VOLUME 9.4 fl (7.4-10.4); RED BLOOD CELL COUNT 2.90 mill/uL (4.2-5.4); RED CELL DISTRIBUTION WIDTH 21.4 % (11.6-14.6)
[2025-05-24 07:05] LABS: CREATININE 3.6 mg/dL (0.6-1.0)
[2025-05-24 07:06] LABS: UREA NITROGEN BLOOD 48 mg/dL (9-23)
[2025-05-24 07:07] LABS: ASPARTATE AMINOTRANSFERASE 36 IU/L (<34); BILIRUBIN DIRECT 0.7 mg/dL (<=3.0)
[2025-05-24 07:08] LABS: BILIRUBIN TOTAL 1.0 mg/dL (0.1-1.0); PHOSPHORUS 5.5 mg/dL (2.5-4.9); PROTEIN TOTAL 6.4 g/dL (6.0-8.3)
[2025-05-24 07:29] LABS: PLATELET 35 x1000/uL (130-400)
[2025-05-24] MEDS ORDERED: FOLIC ACID/VITAMIN B COMP W-C TABLET PO SCH (09:00)
[2025-05-24 10:13] LABS: BG BASE EXCESS -3.1 mmol/L (-2.0-3.0); BG CARBOXYHEMOGLOBIN 0.5 % (0.5-1.5); BG DEOXYHEMOGLOBIN 6.0 % (0.0-5.0); BG FRACTION INSPIRED OXYGEN 28; BG HCO3 ACT 22.7 mmol/L (21.0-28.0); BG METHEMOGLOBIN 0.3 % (0.5-1.5); BG OXYGEN SATURATION 94.0 % (94.0-98.0); BG OXYHEMOGLOBIN 93.2 % (94.0-98.0); BG PCO2 43.8 mmHg (32.0-45.0); BG PH 7.332 (7.350-7.450); BG PO2 79.7 mmHg (83.0-108.0); BG SAMPLE SITE RIGHT BRACHIAL; BG TOTAL HEMOGLOBIN 9.8 g/dL (12.0-16.0); BG VENT MODE NASAL CANNULA
[2025-05-24 10:30] LABS: BAND% 7.0 % (1.0-6.0); LYMPHOCYTES % MANUAL 2.0 % (20.0-60.0); MONOCYTES % MANUAL 1.0 % (2.0-8.0); NEUTROPHILS % MANUAL 90.0 % (45.0-75.0)
[2025-05-24 10:31] LABS: PLATELET ESTIMATE MARKEDLY DECREASED
[2025-05-24] MEDS ORDERED: VANCOMYCIN 750MG PREMIX 150 ML IV SCH (11:00)
[2025-05-24] MEDS: INSULIN LISPRO 100 UNITS/ML SUBCUT SCH (21:46)
[2025-05-25] VITALS (70 sets, daily range): BP systolic 67–166; BP diastolic 45–100; PULSE 57–98; RESP 10–22; TEMP 35.7–36.5; O2SAT 82–100
[2025-05-25 06:03] LABS: HEMATOCRIT. 26.5 % (36.0-48.0); HEMOGLOBIN. 8.5 g/dL (12.0-16.0); MEAN PLATELET VOLUME 9.4 fl (7.4-10.4); RED BLOOD CELL COUNT 2.82 mill/uL (4.2-5.4); RED CELL DISTRIBUTION WIDTH 21.4 % (11.6-14.6)
[2025-05-25 06:17] LABS: CREATININE 4.1 mg/dL (0.6-1.0); UREA NITROGEN BLOOD 52 mg/dL (9-23)
[2025-05-25 06:19] LABS: ASPARTATE AMINOTRANSFERASE 81 IU/L (<34); BILIRUBIN DIRECT 0.7 mg/dL (<=3.0); BILIRUBIN TOTAL 0.9 mg/dL (0.1-1.0); PROTEIN TOTAL 6.5 g/dL (6.0-8.3)
[2025-05-25 07:25] LABS: BAND% 31.0 % (1.0-6.0); EOSINOPHILS % MANUAL 1.0 % (0.0-5.0); LYMPHOCYTES % MANUAL 8.0 % (20.0-60.0); MONOCYTES % MANUAL 3.0 % (2.0-8.0); NEUTROPHILS % MANUAL 57.0 % (45.0-75.0)
[2025-05-25 07:26] LABS: PLATELET ESTIMATE MARKEDLY DECREASED
[2025-05-25 07:27] LABS: PLATELET 27 x1000/uL (130-400)
[2025-05-25] MEDS: DEXTROSE 50% WATER 50ML SYRINGE IV PRN (08:13)
[2025-05-25] MEDS: KCL 20MEQ/100ML PREMIX 100 ML IV ONE (11:00)
[2025-05-25 13:37] LABS: BG BASE EXCESS -2.8 mmol/L (-2.0-3.0); BG CARBOXYHEMOGLOBIN 0.0 % (0.5-1.5); BG DEOXYHEMOGLOBIN 3.9 % (0.0-5.0); BG FRACTION INSPIRED OXYGEN 60; BG HCO3 ACT 21.3 mmol/L (21.0-28.0); BG METHEMOGLOBIN 0.3 % (0.5-1.5); BG OXYGEN SATURATION 96.1 % (94.0-98.0); BG OXYHEMOGLOBIN 95.8 % (94.0-98.0); BG PCO2 34.3 mmHg (32.0-45.0); BG PH 7.410 (7.350-7.450); BG PO2 83.9 mmHg (83.0-108.0); BG SAMPLE SITE RIGHT RADIAL; BG TOTAL HEMOGLOBIN 10.2 g/dL (12.0-16.0); BG VENT MODE MASK - SIMPLE
[2025-05-25] MEDS: DAPTOMYCIN 350 MG in SODIUM CHLORIDE 0.9% 50 ML IV SCH (20:37)
[2025-05-26] VITALS (88 sets, daily range): BP systolic 47–176; BP diastolic 37–118; PULSE 51–78; RESP 7–25; TEMP 35.7–36.78072; O2SAT 68–100
[2025-05-26 07:14] LABS: HEMATOCRIT. 27.3 % (36.0-48.0); HEMOGLOBIN. 8.8 g/dL (12.0-16.0); MEAN PLATELET VOLUME 8.9 fl (7.4-10.4); RED BLOOD CELL COUNT 2.87 mill/uL (4.2-5.4); RED CELL DISTRIBUTION WIDTH 21.8 % (11.6-14.6)
[2025-05-26 07:42] LABS: PROTEIN TOTAL 6.2 g/dL (6.0-8.3)
[2025-05-26 07:44] LABS: CREATININE 2.9 mg/dL (0.6-1.0)
[2025-05-26 07:45] LABS: UREA NITROGEN BLOOD 36 mg/dL (9-23)
[2025-05-26 07:46] LABS: ASPARTATE AMINOTRANSFERASE 38 IU/L (<34); BILIRUBIN DIRECT 0.8 mg/dL (<=3.0)
[2025-05-26 07:47] LABS: BILIRUBIN TOTAL 1.1 mg/dL (0.1-1.0); PHOSPHORUS 3.3 mg/dL (2.5-4.9)
[2025-05-26 08:06] LABS: PLATELET 12 x1000/uL (130-400)
[2025-05-26] MEDS: KCL 20MEQ/100ML PREMIX 100 ML IV SCH (08:20)
[2025-05-26 15:46] LABS: BAND% 13.0 % (1.0-6.0); LYMPHOCYTES % MANUAL 6.0 % (20.0-60.0); NEUTROPHILS % MANUAL 81.0 % (45.0-75.0); PLATELET ESTIMATE MARKEDLY DECREASED
[2025-05-26] MEDS: BLOOD SUGAR DIAGNOSTIC STRIP TEST SCH (17:58)
[2025-05-26] MEDS: MIRTAZAPINE 15MG TABLET PO SCH (22:01)
[2025-05-27] VITALS (104 sets, daily range): BP systolic 60–186; BP diastolic 48–134; PULSE 49–102; RESP 10–21; TEMP 36.16956–36.7; O2SAT 31–100
[2025-05-27 07:20] LABS: FOLIC ACID (FOLATE) SERUM > 20.00 ng/mL (>5.38)
[2025-05-27 07:22] LABS: CREATININE 3.3 mg/dL (0.6-1.0)
[2025-05-27 07:23] LABS: UREA NITROGEN BLOOD 47 mg/dL (9-23)
[2025-05-27 07:24] LABS: ASPARTATE AMINOTRANSFERASE 40 IU/L (<34)
[2025-05-27 07:25] LABS: BILIRUBIN DIRECT 0.9 mg/dL (<=3.0); BILIRUBIN TOTAL 1.2 mg/dL (0.1-1.0); PROTEIN TOTAL 6.4 g/dL (6.0-8.3)
[2025-05-27 07:35] LABS: VITAMIN B12 SERUM > 2000 pg/mL (211-911)
[2025-05-27 08:23] LABS: HEMATOCRIT. 26.9 % (36.0-48.0); HEMOGLOBIN. 8.5 g/dL (12.0-16.0); MEAN PLATELET VOLUME 7.8 fl (7.4-10.4); RED BLOOD CELL COUNT 2.81 mill/uL (4.2-5.4); RED CELL DISTRIBUTION WIDTH 21.5 % (11.6-14.6)
[2025-05-27 08:35] LABS: PLATELET 41 x1000/uL (130-400)
[2025-05-27] MEDS ORDERED: NON FORMULARY MED XX SCH (11:00)
[2025-05-27] MEDS: IRON SUCROSE COMPLEX 100 MG/5 ML ML IV SCH (11:33)
[2025-05-27] MEDS: IPRATROPIUM/ALBUTEROL 0.5-3(2.5)MG/3ML NEB HHN SCH (14:52)
[2025-05-27 18:25] LABS: BAND% 21.0 % (1.0-6.0); LYMPHOCYTES % MANUAL 7.0 % (20.0-60.0); METAMYELOCYTES % 2.0 % (0-0); MONOCYTES % MANUAL 1.0 % (2.0-8.0); NEUTROPHILS % MANUAL 69.0 % (45.0-75.0); NUCLEATED RED BLOOD CELLS 1 /100 WBC; PLATELET ESTIMATE MARKEDLY DECREASED
[2025-05-27] MEDS: BLOOD SUGAR DIAGNOSTIC STRIP TEST SCH (18:47)
[2025-05-28] VITALS (89 sets, daily range): BP systolic 41–121; BP diastolic 16–93; PULSE 48–95; RESP 10–20; TEMP 36.1–36.4; O2SAT 89–100
[2025-05-28] MEDS: BLOOD SUGAR DIAGNOSTIC STRIP TEST SCH ×2 (04:19→13:34)
[2025-05-28 04:53] LABS: HEMATOCRIT. 25.5 % (36.0-48.0); HEMOGLOBIN. 8.4 g/dL (12.0-16.0); RED BLOOD CELL COUNT 2.71 mill/uL (4.2-5.4); RED CELL DISTRIBUTION WIDTH 20.8 % (11.6-14.6)
[2025-05-28 05:14] LABS: CREATININE 2.4 mg/dL (0.6-1.0)
[2025-05-28 05:15] LABS: UREA NITROGEN BLOOD 34 mg/dL (9-23)
[2025-05-28 05:16] LABS: ASPARTATE AMINOTRANSFERASE 29 IU/L (<34)
[2025-05-28 05:17] LABS: BILIRUBIN TOTAL 1.2 mg/dL (0.1-1.0); PROTEIN TOTAL 6.0 g/dL (6.0-8.3)
[2025-05-28 07:06] LABS: MEAN PLATELET VOLUME 8.6 fl (7.4-10.4); PLATELET 16 x1000/uL (130-400)
[2025-05-28] MEDS: KCL 20MEQ/100ML PREMIX 100 ML IV SCH (08:08)
[2025-05-28] MEDS: POTASSIUM CHLORIDE 20MEQ/PACKET PO NR (08:08)
[2025-05-28] MEDS: INSULIN LISPRO 100 UNITS/ML SUBCUT SCH (13:36)
[2025-05-28] MEDS: DEXT 10% WATER 1,000 ML IV SCH (14:00)
[2025-05-28 15:51] LABS: LYMPHOCYTES % MANUAL 11.0 % (20.0-60.0); MONOCYTES % MANUAL 1.0 % (2.0-8.0); NEUTROPHILS % MANUAL 88.0 % (45.0-75.0); PLATELET ESTIMATE MARKEDLY DECREASED
[2025-05-29] VITALS (92 sets, daily range): BP systolic 59–173; BP diastolic 48–116; PULSE 41–72; RESP 0–25; TEMP 36.114–36.33624; O2SAT 69–100
[2025-05-29] MEDS: DEXTROSE 50% WATER 50ML SYRINGE IV PRN (00:05)
[2025-05-29 05:52] LABS: BASOPHILS % 0.4 % (0.0-2.0); EOSINOPHILS % 0.0 % (0.0-5.0); HEMATOCRIT. 27.4 % (36.0-48.0); HEMOGLOBIN. 8.6 g/dL (12.0-16.0); LYMPHOCYTES % 8.5 % (20.0-50.0); MEAN PLATELET VOLUME 8.8 fl (7.4-10.4); MONOCYTES % 1.3 % (2.0-8.0); NEUTROPHILS % 89.8 % (40.0-76.0); RED BLOOD CELL COUNT 2.84 mill/uL (4.2-5.4); RED CELL DISTRIBUTION WIDTH 22.7 % (11.6-14.6)
[2025-05-29 06:03] LABS: CREATININE 2.8 mg/dL (0.6-1.0)
[2025-05-29 06:04] LABS: UREA NITROGEN BLOOD 43 mg/dL (9-23)
[2025-05-29 06:06] LABS: PHOSPHORUS 3.4 mg/dL (2.5-4.9)
[2025-05-29 06:07] LABS: PLATELET 18 x1000/uL (130-400)
[2025-05-29] MEDS: POTASSIUM CHLORIDE 20MEQ/PACKET PO SCH (17:58)
[2025-05-30] VITALS (111 sets, daily range): BP systolic 64–152; BP diastolic 11–128; PULSE 40–73; RESP 7–26; TEMP 32.2–36.4; O2SAT 82–100
[2025-05-30 00:05] LABS: UREA NITROGEN BLOOD 24.0 mg/dL (9-23)
[2025-05-30 00:06] LABS: CREATININE 1.7 mg/dL (0.6-1.0)
[2025-05-30 04:22] LABS: BASOPHILS % 0.3 % (0.0-2.0); EOSINOPHILS % 0.0 % (0.0-5.0); HEMATOCRIT. 29.0 % (36.0-48.0); HEMOGLOBIN. 9.1 g/dL (12.0-16.0); LYMPHOCYTES % 8.7 % (20.0-50.0); MEAN PLATELET VOLUME 9.2 fl (7.4-10.4); MONOCYTES % 1.6 % (2.0-8.0); NEUTROPHILS % 89.4 % (40.0-76.0); RED BLOOD CELL COUNT 3.08 mill/uL (4.2-5.4); RED CELL DISTRIBUTION WIDTH 22.0 % (11.6-14.6)
[2025-05-30 04:51] LABS: PLATELET 13 x1000/uL (130-400)
[2025-05-30 09:31] LABS: BG BASE EXCESS -7.0 mmol/L (-2.0-3.0); BG CARBOXYHEMOGLOBIN 0.1 % (0.5-1.5); BG DEOXYHEMOGLOBIN 3.1 % (0.0-5.0); BG FRACTION INSPIRED OXYGEN 28; BG HCO3 ACT 20.6 mmol/L (21.0-28.0); BG METHEMOGLOBIN 0.3 % (0.5-1.5); BG OXYGEN SATURATION 96.9 % (94.0-98.0); BG OXYHEMOGLOBIN 96.5 % (94.0-98.0); BG PCO2 51.9 mmHg (32.0-45.0); BG PH 7.217 (7.350-7.450); BG PO2 103.0 mmHg (83.0-108.0); BG SAMPLE SITE RIGHT BRACHIAL; BG TOTAL HEMOGLOBIN 9.6 g/dL (12.0-16.0); BG VENT MODE NASAL CANNULA
[2025-05-30 21:42] LABS: BG BASE EXCESS -7.2 mmol/L (-2.0-3.0); BG CARBOXYHEMOGLOBIN 1.1 % (0.5-1.5); BG DEOXYHEMOGLOBIN 9.3 % (0.0-5.0); BG FRACTION INSPIRED OXYGEN 32; BG HCO3 ACT 19.4 mmol/L (21.0-28.0); BG METHEMOGLOBIN 0.1 % (0.5-1.5); BG OXYGEN SATURATION 90.6 % (94.0-98.0); BG OXYHEMOGLOBIN 89.5 % (94.0-98.0); BG PCO2 44.8 mmHg (32.0-45.0); BG PH 7.255 (7.350-7.450); BG PO2 63.6 mmHg (83.0-108.0); BG SAMPLE SITE LEFT RADIAL; BG TOTAL HEMOGLOBIN 8.1 g/dL (12.0-16.0); BG VENT MODE NASAL CANNULA
[2025-05-31] VITALS (69 sets, daily range): BP systolic 75–145; BP diastolic 42–98; PULSE 65–76; RESP 11–25; TEMP 36–37.00296; O2SAT 88–100
[2025-05-31 03:40] LABS: HEMATOCRIT. 23.7 % (36.0-48.0); HEMOGLOBIN. 7.5 g/dL (12.0-16.0); MEAN PLATELET VOLUME 7.9 fl (7.4-10.4); RED BLOOD CELL COUNT 2.53 mill/uL (4.2-5.4); RED CELL DISTRIBUTION WIDTH 21.6 % (11.6-14.6)
[2025-05-31 04:30] LABS: PLATELET 31 x1000/uL (130-400)
[2025-05-31 09:48] LABS: BAND% 20.0 % (1.0-6.0); LYMPHOCYTES % MANUAL 19.0 % (20.0-60.0); MONOCYTES % MANUAL 4.0 % (2.0-8.0); NEUTROPHILS % MANUAL 57.0 % (45.0-75.0); NUCLEATED RED BLOOD CELLS 1 /100 WBC
[2025-05-31 09:49] LABS: PLATELET ESTIMATE MARKEDLY DECREASED
[2025-05-31] MEDS: ACETAMINOPHEN 325MG TABLET PO PRN (09:58)
[2025-05-31] MEDS: DEXT 10% WATER 1,000 ML IV SCH (09:59)
[2025-06-01] VITALS (97 sets, daily range): BP systolic 85–166; BP diastolic 63–146; PULSE 53–80; RESP 8–21; TEMP 36.6–37.2; O2SAT 85–100
[2025-06-01 03:32] LABS: HEMATOCRIT. 22.7 % (36.0-48.0); HEMOGLOBIN. 7.2 g/dL (12.0-16.0); MEAN PLATELET VOLUME 8.4 fl (7.4-10.4); RED BLOOD CELL COUNT 2.45 mill/uL (4.2-5.4); RED CELL DISTRIBUTION WIDTH 21.7 % (11.6-14.6)
[2025-06-01 03:54] LABS: PLATELET 24 x1000/uL (130-400)
[2025-06-01 10:49] LABS: BAND% 35.0 % (1.0-6.0); LYMPHOCYTES % MANUAL 8.0 % (20.0-60.0); MONOCYTES % MANUAL 1.0 % (2.0-8.0); NEUTROPHILS % MANUAL 56.0 % (45.0-75.0); PLATELET ESTIMATE MARKEDLY DECREASED
[2025-06-01] MEDS: DEXT 10% WATER 1,000 ML IV SCH (13:38)
[2025-06-02] VITALS (83 sets, daily range): BP systolic 50–174; BP diastolic 35–122; PULSE 45–82; RESP 8–34; TEMP 36.6; O2SAT 93–100
[2025-06-02 06:56] LABS: HEMATOCRIT. 24.5 % (36.0-48.0); HEMOGLOBIN. 7.6 g/dL (12.0-16.0); MEAN PLATELET VOLUME 10.1 fl (7.4-10.4); RED BLOOD CELL COUNT 2.57 mill/uL (4.2-5.4); RED CELL DISTRIBUTION WIDTH 21.4 % (11.6-14.6)
[2025-06-02 07:10] LABS: PLATELET 22 x1000/uL (130-400)
[2025-06-02 08:34] LABS: ASPARTATE AMINOTRANSFERASE 88 IU/L (<34)
[2025-06-02 08:35] LABS: BILIRUBIN TOTAL 1.4 mg/dL (0.1-1.0); PHOSPHORUS 2.8 mg/dL (2.5-4.9); PROTEIN TOTAL 5.7 g/dL (6.0-8.3)
[2025-06-02 08:42] LABS: UREA NITROGEN BLOOD 34 mg/dL (9-23)
[2025-06-02 08:49] LABS: CREATININE 2.4 mg/dL (0.6-1.0)
[2025-06-02 12:45] LABS: BAND% 26.0 % (1.0-6.0); LYMPHOCYTES % MANUAL 7.0 % (20.0-60.0); NEUTROPHILS % MANUAL 67.0 % (45.0-75.0); PLATELET ESTIMATE MARKEDLY DECREASED
[2025-06-02] MEDS: MAGNESIUM 2 G PREMIX 50 ML IV SCH (21:14)
[2025-06-03] VITALS (104 sets, daily range): BP systolic 66–183; BP diastolic 49–97; PULSE 42–91; RESP 7–20; TEMP 35–37; O2SAT 93–100
[2025-06-03 07:18] LABS: HEMATOCRIT. 25.4 % (36.0-48.0); HEMOGLOBIN. 8.1 g/dL (12.0-16.0); MEAN PLATELET VOLUME 8.8 fl (7.4-10.4); RED BLOOD CELL COUNT 2.73 mill/uL (4.2-5.4); RED CELL DISTRIBUTION WIDTH 20.7 % (11.6-14.6)
[2025-06-03 07:23] LABS: CREATININE 2.6 mg/dL (0.6-1.0); UREA NITROGEN BLOOD 45 mg/dL (9-23)
[2025-06-03 07:25] LABS: PHOSPHORUS 1.9 mg/dL (2.5-4.9)
[2025-06-03 07:31] LABS: PLATELET 19 x1000/uL (130-400)
[2025-06-03 09:11] LABS: BG BASE EXCESS -3.8 mmol/L (-2.0-3.0); BG CARBOXYHEMOGLOBIN 0.7 % (0.5-1.5); BG DEOXYHEMOGLOBIN 2.5 % (0.0-5.0); BG FRACTION INSPIRED OXYGEN 21; BG HCO3 ACT 20.2 mmol/L (21.0-28.0); BG METHEMOGLOBIN 0.3 % (0.5-1.5); BG OXYGEN SATURATION 97.5 % (94.0-98.0); BG OXYHEMOGLOBIN 96.5 % (94.0-98.0); BG PCO2 31.4 mmHg (32.0-45.0); BG PH 7.427 (7.350-7.450); BG PO2 91.1 mmHg (83.0-108.0); BG SAMPLE SITE LEFT RADIAL; BG TOTAL HEMOGLOBIN 6.2 g/dL (12.0-16.0); BG VENT MODE ROOM AIR
[2025-06-03] MEDS: DAPTOMYCIN 250 MG in SODIUM CHLORIDE 0.9% 50 ML IV SCH (10:31)
[2025-06-04] VITALS (83 sets, daily range): BP systolic 74–171; BP diastolic 60–92; PULSE 51–87; RESP 10–20; TEMP 35–36.7; O2SAT 75–100
[2025-06-04 09:15] LABS: BAND% 23.0 % (1.0-6.0); LYMPHOCYTES % MANUAL 13.0 % (20.0-60.0); METAMYELOCYTES % 1.0 % (0-0); NEUTROPHILS % MANUAL 63.0 % (45.0-75.0); NUCLEATED RED BLOOD CELLS 1 /100 WBC; PLATELET ESTIMATE MARKEDLY DECREASED
[2025-06-04 12:25] LABS: HEMATOCRIT. 21.5 % (36.0-48.0); MEAN PLATELET VOLUME 8.9 fl (7.4-10.4); RED BLOOD CELL COUNT 2.37 mill/uL (4.2-5.4); RED CELL DISTRIBUTION WIDTH 19.9 % (11.6-14.6)
[2025-06-04 12:39] LABS: HEMOGLOBIN. 7.0 g/dL (12.0-16.0); PLATELET 21 x1000/uL (130-400)
[2025-06-04 12:40] LABS: CREATININE 2.3 mg/dL (0.6-1.0)
[2025-06-04 12:42] LABS: ASPARTATE AMINOTRANSFERASE 43 IU/L (<34); UREA NITROGEN BLOOD 42 mg/dL (9-23)
[2025-06-04 12:43] LABS: BILIRUBIN TOTAL 1.1 mg/dL (0.1-1.0)
[2025-06-04 12:44] LABS: PROTEIN TOTAL 5.7 g/dL (6.0-8.3)
[2025-06-04 13:13] LABS: BAND% 10.0 % (1.0-6.0); LYMPHOCYTES % MANUAL 6.0 % (20.0-60.0); NEUTROPHILS % MANUAL 84.0 % (45.0-75.0); PLATELET ESTIMATE MARKEDLY DECREASED
[2025-06-04] MEDS ORDERED: DAPTOMYCIN 350 MG in SODIUM CHLORIDE 0.9% 50 ML IV SCH (18:45)
[2025-06-05] VITALS (65 sets, daily range): BP systolic 82–160; BP diastolic 62–97; PULSE 48–68; RESP 8–22; TEMP 35.8362–36.7; O2SAT 95–100
[2025-06-05 05:43] LABS: BASOPHILS % 0.3 % (0.0-2.0); EOSINOPHILS % 0.0 % (0.0-5.0); LYMPHOCYTES % 8.8 % (20.0-50.0); MEAN PLATELET VOLUME 8.8 fl (7.4-10.4); MONOCYTES % 1.4 % (2.0-8.0); NEUTROPHILS % 89.5 % (40.0-76.0); RED BLOOD CELL COUNT 2.07 mill/uL (4.2-5.4); RED CELL DISTRIBUTION WIDTH 19.4 % (11.6-14.6)
[2025-06-05 05:53] LABS: CREATININE 2.6 mg/dL (0.6-1.0); UREA NITROGEN BLOOD 48.0 mg/dL (9-23)
[2025-06-05 06:13] LABS: HEMOGLOBIN. 6.0 g/dL (12.0-16.0)
[2025-06-05 06:14] LABS: HEMATOCRIT. 18.9 % (36.0-48.0); PLATELET 14 x1000/uL (130-400)
[2025-06-05] MEDS: VITAMINS A AND D OINT 5GM UDPKT TOP SCH (09:15)
[2025-06-05] MEDS ORDERED: DAPTOMYCIN 350 MG in SODIUM CHLORIDE 0.9% 50 ML IV SCH (21:00)
[2025-06-05 22:53] LABS: HEMATOCRIT. 32.2 % (36.0-48.0); HEMOGLOBIN. 10.7 g/dL (12.0-16.0); MEAN PLATELET VOLUME 7.5 fl (7.4-10.4); RED BLOOD CELL COUNT 3.63 mill/uL (4.2-5.4); RED CELL DISTRIBUTION WIDTH 15.8 % (11.6-14.6)
[2025-06-05 22:57] LABS: PLATELET 40 x1000/uL (130-400)
[2025-06-05 23:11] LABS: LYMPHOCYTES % MANUAL 9.0 % (20.0-60.0); NEUTROPHILS % MANUAL 91.0 % (45.0-75.0); PLATELET ESTIMATE MARKEDLY DECREASED
[2025-06-06] VITALS (92 sets, daily range): BP systolic 58–156; BP diastolic 46–108; PULSE 50–71; RESP 0–20; TEMP 35.44728–36.6696; O2SAT 95–100
[2025-06-06 02:14] LABS: HEMATOCRIT. 32.9 % (36.0-48.0); HEMOGLOBIN. 11.0 g/dL (12.0-16.0); MEAN PLATELET VOLUME 7.4 fl (7.4-10.4); RED BLOOD CELL COUNT 3.72 mill/uL (4.2-5.4); RED CELL DISTRIBUTION WIDTH 15.6 % (11.6-14.6)
[2025-06-06 02:28] LABS: PLATELET 33 x1000/uL (130-400)
[2025-06-06 03:01] LABS: BAND% 5.0 % (1.0-6.0); LYMPHOCYTES % MANUAL 10.0 % (20.0-60.0); MONOCYTES % MANUAL 1.0 % (2.0-8.0); NEUTROPHILS % MANUAL 84.0 % (45.0-75.0)
[2025-06-06 03:02] LABS: PLATELET ESTIMATE DECREASED
[2025-06-06 07:15] LABS: HEMATOCRIT. 28.9 % (36.0-48.0); HEMOGLOBIN. 9.6 g/dL (12.0-16.0); MEAN PLATELET VOLUME 7.5 fl (7.4-10.4); PLATELET 54 x1000/uL (130-400); RED BLOOD CELL COUNT 3.27 mill/uL (4.2-5.4); RED CELL DISTRIBUTION WIDTH 16.0 % (11.6-14.6)
[2025-06-06 07:25] LABS: CREATININE 1.9 mg/dL (0.6-1.0); UREA NITROGEN BLOOD 34.0 mg/dL (9-23)
[2025-06-06 07:31] LABS: INR 1.2
[2025-06-06] MEDS: POTASSIUM CHLORIDE 20MEQ/PACKET PO NR (07:45)
[2025-06-06 10:58] LABS: BG BASE EXCESS 0.8 mmol/L (-2.0-3.0); BG CARBOXYHEMOGLOBIN 0.4 % (0.5-1.5); BG DEOXYHEMOGLOBIN 2.3 % (0.0-5.0); BG FLOW(L/min) 2.00 L/min; BG FRACTION INSPIRED OXYGEN 28; BG HCO3 ACT 24.1 mmol/L (21.0-28.0); BG METHEMOGLOBIN 0.3 % (0.5-1.5); BG OXYGEN SATURATION 97.7 % (94.0-98.0); BG OXYHEMOGLOBIN 97.0 % (94.0-98.0); BG PCO2 33.8 mmHg (32.0-45.0); BG PH 7.471 (7.350-7.450); BG PO2 102.6 mmHg (83.0-108.0); BG SAMPLE SITE LEFT RADIAL; BG TOTAL HEMOGLOBIN 10.9 g/dL (12.0-16.0); BG VENT MODE NASAL CANNULA
[2025-06-06] MEDS: KCL 20MEQ/100ML PREMIX 100 ML IV SCH (11:01)
[2025-06-06] MEDS: CEFAZOLIN 1000MG PREMIX 50 ML IV SCH (13:36)
[2025-06-06] MEDS ORDERED: PROPOFOL 200MG/20ML VIAL IV ONE (14:49)
[2025-06-06] MEDS: NOREPINEPHRINE 8MG/250ML PMX 250 ML IV PRN (16:08)
[2025-06-07] VITALS (99 sets, daily range): BP systolic 58–156; BP diastolic 46–93; PULSE 61–89; RESP 7–23; TEMP 35.22504–37.4; O2SAT 50–100
[2025-06-07] MEDS: METOCLOPRAMIDE HCL 10MG/2ML VIAL IV SCH (05:46)
[2025-06-07 07:32] LABS: CREATININE 2.3 mg/dL (0.6-1.0)
[2025-06-07 07:33] LABS: UREA NITROGEN BLOOD 42.0 mg/dL (9-23)
[2025-06-07 07:36] LABS: HEMATOCRIT. 33.0 % (36.0-48.0); HEMOGLOBIN. 10.9 g/dL (12.0-16.0); MEAN PLATELET VOLUME 8.6 fl (7.4-10.4); RED BLOOD CELL COUNT 3.69 mill/uL (4.2-5.4); RED CELL DISTRIBUTION WIDTH 16.4 % (11.6-14.6)
[2025-06-07 07:48] LABS: PLATELET 49 x1000/uL (130-400)
[2025-06-07 12:50] LABS: BAND% 23.0 % (1.0-6.0); LYMPHOCYTES % MANUAL 4.0 % (20.0-60.0); MONOCYTES % MANUAL 2.0 % (2.0-8.0); NEUTROPHILS % MANUAL 71.0 % (45.0-75.0); PLATELET ESTIMATE DECREASED
[2025-06-07 17:48] LABS: EOSINOPHILS % MANUAL 1.0 % (0.0-5.0); LYMPHOCYTES % MANUAL 3.0 % (20.0-60.0); MONOCYTES % MANUAL 3.0 % (2.0-8.0); NEUTROPHILS % MANUAL 93.0 % (45.0-75.0)
[2025-06-07 17:49] LABS: PLATELET ESTIMATE MARKEDLY DECREASED
[2025-06-08] VITALS (58 sets, daily range): BP systolic 75–149; BP diastolic 45–84; PULSE 68–101; RESP 9–29; TEMP 36.4–39; O2SAT 97–100
[2025-06-08 06:11] LABS: HEMATOCRIT. 29.4 % (36.0-48.0); HEMOGLOBIN. 9.8 g/dL (12.0-16.0); MEAN PLATELET VOLUME 8.8 fl (7.4-10.4); RED BLOOD CELL COUNT 3.28 mill/uL (4.2-5.4); RED CELL DISTRIBUTION WIDTH 16.5 % (11.6-14.6)
[2025-06-08 06:23] LABS: CREATININE 2.1 mg/dL (0.6-1.0)
[2025-06-08 06:24] LABS: UREA NITROGEN BLOOD 38.0 mg/dL (9-23)
[2025-06-08 06:35] LABS: PLATELET 33 x1000/uL (130-400)
[2025-06-08] MEDS: POTASSIUM CHLORIDE 20MEQ/PACKET PEG NR (09:20)
[2025-06-08 09:34] LABS: BG BASE EXCESS -6.7 mmol/L (-2.0-3.0); BG CARBOXYHEMOGLOBIN 0.9 % (0.5-1.5); BG DEOXYHEMOGLOBIN 7.6 % (0.0-5.0); BG FLOW(L/min) 1.00 L/min; BG FRACTION INSPIRED OXYGEN 24; BG HCO3 ACT 17.9 mmol/L (21.0-28.0); BG METHEMOGLOBIN 0.1 % (0.5-1.5); BG OXYGEN SATURATION 92.3 % (94.0-98.0); BG OXYHEMOGLOBIN 91.4 % (94.0-98.0); BG PCO2 33.0 mmHg (32.0-45.0); BG PH 7.353 (7.350-7.450); BG PO2 66.1 mmHg (83.0-108.0); BG SAMPLE SITE RIGHT RADIAL; BG TOTAL HEMOGLOBIN 11.0 g/dL (12.0-16.0); BG VENT MODE NASAL CANNULA
[2025-06-08 12:07] LABS: BAND% 1.0 % (1.0-6.0); LYMPHOCYTES % MANUAL 5.0 % (20.0-60.0); MONOCYTES % MANUAL 1.0 % (2.0-8.0); NEUTROPHILS % MANUAL 93.0 % (45.0-75.0)
[2025-06-08 12:08] LABS: PLATELET ESTIMATE DECREASED
[2025-06-08 20:52] LABS: CREATININE 2.3 mg/dL (0.6-1.0); UREA NITROGEN BLOOD 49.0 mg/dL (9-23)
[2025-06-08] MEDS: POTASSIUM CHLORIDE 20MEQ/PACKET GT NR (21:33)
[2025-06-09] VITALS (79 sets, daily range): BP systolic 78–120; BP diastolic 57–72; PULSE 69–79; RESP 9–22; TEMP 36.6–37.2; O2SAT 94–100
[2025-06-09 06:12] LABS: HEMATOCRIT. 28.6 % (36.0-48.0); HEMOGLOBIN. 9.4 g/dL (12.0-16.0); MEAN PLATELET VOLUME 9.2 fl (7.4-10.4); RED BLOOD CELL COUNT 3.15 mill/uL (4.2-5.4); RED CELL DISTRIBUTION WIDTH 16.7 % (11.6-14.6)
[2025-06-09 06:31] LABS: CREATININE 2.4 mg/dL (0.6-1.0)
[2025-06-09 06:32] LABS: UREA NITROGEN BLOOD 51 mg/dL (9-23)
[2025-06-09 06:34] LABS: PHOSPHORUS 3.3 mg/dL (2.5-4.9)
[2025-06-09 07:00] LABS: PLATELET 24 x1000/uL (130-400)
[2025-06-09 12:12] LABS: BAND% 5.0 % (1.0-6.0); LYMPHOCYTES % MANUAL 5.0 % (20.0-60.0); MONOCYTES % MANUAL 1.0 % (2.0-8.0); NEUTROPHILS % MANUAL 89.0 % (45.0-75.0)
[2025-06-09 12:14] LABS: PLATELET ESTIMATE MARKEDLY DECREASED
[2025-06-10] VITALS (105 sets, daily range): BP systolic 50–146; BP diastolic 25–102; PULSE 0–155; RESP 0–48; TEMP 36.1–36.8; O2SAT 91–100
[2025-06-10] MEDS ORDERED: NOREPINEPHRINE 32 MG in DEXT 5% WATER 218 ML IV PRN (04:30)
[2025-06-10] MEDS ORDERED: FENTANYL 2500MCG/250ML PMX 250 ML IV ONE (04:30)
[2025-06-10] MEDS ORDERED: DEXMEDETOMIDINE 100 ML IV PRN (04:30)
[2025-06-10] MEDS ORDERED: FENTANYL CITRATE 2,500 MCG in SODIUM CHLORIDE 0.9% 200 ML IV PRN (04:45)
[2025-06-10] MEDS: NOREPINEPHRINE 32 MG in SODIUM CHLORIDE 0.9% 218 ML IV PRN (05:06)
[2025-06-10 05:34] LABS: BG BASE EXCESS -10.5 mmol/L (-2.0-3.0); BG CARBOXYHEMOGLOBIN 0.3 % (0.5-1.5); BG DEOXYHEMOGLOBIN 0.8 % (0.0-5.0); BG FRACTION INSPIRED OXYGEN 100; BG HCO3 ACT 16.3 mmol/L (21.0-28.0); BG METHEMOGLOBIN 0.3 % (0.5-1.5); BG OXYGEN SATURATION 99.2 % (94.0-98.0); BG OXYHEMOGLOBIN 98.6 % (94.0-98.0); BG PCO2 39.2 mmHg (32.0-45.0); BG PEEP (cmH2O) 5.0 cmH2O; BG PH 7.236 (7.350-7.450); BG PO2 181.8 mmHg (83.0-108.0); BG SAMPLE SITE ALINE; BG TIDAL VOLUME(mL) 425.0 mL; BG TOTAL HEMOGLOBIN 10.9 g/dL (12.0-16.0); BG TOTAL RESPIRATORY RATE 21 b/min; BG VENT MODE VENT - AC; BG VENT RATE 20.0 set
[2025-06-10 06:54] LABS: HEMATOCRIT. 30.8 % (36.0-48.0); HEMOGLOBIN. 10.4 g/dL (12.0-16.0); MEAN PLATELET VOLUME 9.8 fl (7.4-10.4); PLATELET 52 x1000/uL (130-400); RED BLOOD CELL COUNT 3.44 mill/uL (4.2-5.4); RED CELL DISTRIBUTION WIDTH 16.6 % (11.6-14.6)
[2025-06-10 07:06] LABS: CREATININE 2.6 mg/dL (0.6-1.0); UREA NITROGEN BLOOD 57.0 mg/dL (9-23)
[2025-06-10] MEDS ORDERED: ACETAMINOPHEN 650MG SUPP PR PRN (08:45)
[2025-06-10] MEDS: METHYLPREDNISOLONE SOD SUCC 40MG/ML (ACT-O-VIAL) IV SCH (09:25)
[2025-06-10] MEDS: KCL 20MEQ/100ML PREMIX 100 ML IV NR (09:25)
[2025-06-10] MEDS: POTASSIUM CHLORIDE 20MEQ/PACKET GT NR (09:25)
[2025-06-10 11:19] LABS: BG BASE EXCESS -10.9 mmol/L (-2.0-3.0); BG CARBOXYHEMOGLOBIN 0.5 % (0.5-1.5); BG DEOXYHEMOGLOBIN 0.4 % (0.0-5.0); BG FRACTION INSPIRED OXYGEN 100; BG HCO3 ACT 13.3 mmol/L (21.0-28.0); BG METHEMOGLOBIN 0.3 % (0.5-1.5); BG OXYGEN SATURATION 99.6 % (94.0-98.0); BG OXYHEMOGLOBIN 98.8 % (94.0-98.0); BG PCO2 25.3 mmHg (32.0-45.0); BG PEEP (cmH2O) 5.0 cmH2O; BG PH 7.339 (7.350-7.450); BG PO2 212.9 mmHg (83.0-108.0); BG SAMPLE SITE ALINE; BG TIDAL VOLUME(mL) 450.0 mL; BG TOTAL HEMOGLOBIN 11.7 g/dL (12.0-16.0); BG VENT MODE VENT - AC; BG VENT RATE 26.0 set
[2025-06-10 11:35] LABS: HEMATOCRIT. 33.4 % (36.0-48.0); HEMOGLOBIN. 10.9 g/dL (12.0-16.0); MEAN PLATELET VOLUME 10.0 fl (7.4-10.4); PLATELET 51 x1000/uL (130-400); RED BLOOD CELL COUNT 3.70 mill/uL (4.2-5.4); RED CELL DISTRIBUTION WIDTH 17.0 % (11.6-14.6)
[2025-06-10 11:50] LABS: CREATININE 2.6 mg/dL (0.6-1.0); TRIGLYCERIDE 73 mg/dL (0-150); UREA NITROGEN BLOOD 54 mg/dL (9-23)
[2025-06-10 11:51] LABS: LDL CHOLESTEROL 16 mg/dL (5-100)
[2025-06-10 11:52] LABS: ASPARTATE AMINOTRANSFERASE 71 IU/L (<34); BILIRUBIN DIRECT 0.9 mg/dL (<=3.0); PHOSPHORUS 3.7 mg/dL (2.5-4.9)
[2025-06-10 11:53] LABS: BILIRUBIN TOTAL 1.3 mg/dL (0.1-1.0); PROTEIN TOTAL 6.2 g/dL (6.0-8.3)
[2025-06-10] MEDS: POLYVINYL ALCOHOL OPHTH DROPS 15ML BOTHEYE SCH (14:40)
[2025-06-10] MEDS: IPRATROPIUM BROMIDE (0.02%) 0.5MG/2.5ML NEB HHN SCH (16:05)
[2025-06-10] MEDS: SODIUM BICARBONATE 8.4% 50MEQ/50ML SYR IV SCH (17:14)
[2025-06-10 19:51] LABS: BAND% 6.0 % (1.0-6.0); LYMPHOCYTES % MANUAL 4.0 % (20.0-60.0); MONOCYTES % MANUAL 1.0 % (2.0-8.0); NEUTROPHILS % MANUAL 89.0 % (45.0-75.0); PLATELET ESTIMATE DECREASED
[2025-06-10 19:58] LABS: BAND% 9.0 % (1.0-6.0); LYMPHOCYTES % MANUAL 6.0 % (20.0-60.0); MONOCYTES % MANUAL 2.0 % (2.0-8.0); NEUTROPHILS % MANUAL 83.0 % (45.0-75.0); PLATELET ESTIMATE DECREASED
[2025-06-11] VITALS (103 sets, daily range): BP systolic 86–152; BP diastolic 45–94; PULSE 62–106; RESP 14–28; TEMP 36.05844–36.16956; O2SAT 94–100
[2025-06-11 06:29] LABS: HEMATOCRIT. 26.5 % (36.0-48.0); HEMOGLOBIN. 8.8 g/dL (12.0-16.0); MEAN PLATELET VOLUME 10.9 fl (7.4-10.4); RED BLOOD CELL COUNT 2.95 mill/uL (4.2-5.4); RED CELL DISTRIBUTION WIDTH 17.2 % (11.6-14.6)
[2025-06-11 06:41] LABS: CREATININE 2.8 mg/dL (0.6-1.0)
[2025-06-11 06:42] LABS: UREA NITROGEN BLOOD 79 mg/dL (9-23)
[2025-06-11 06:43] LABS: ASPARTATE AMINOTRANSFERASE 59 IU/L (<34)
[2025-06-11 06:44] LABS: BILIRUBIN TOTAL 0.9 mg/dL (0.1-1.0); PHOSPHORUS 3.7 mg/dL (2.5-4.9); PROTEIN TOTAL 5.8 g/dL (6.0-8.3)
[2025-06-11 06:46] LABS: PLATELET 33 x1000/uL (130-400)
[2025-06-11 09:04] LABS: BG BASE EXCESS -7.9 mmol/L (-2.0-3.0); BG CARBOXYHEMOGLOBIN 0.3 % (0.5-1.5); BG DEOXYHEMOGLOBIN 0.2 % (0.0-5.0); BG FRACTION INSPIRED OXYGEN 80; BG HCO3 ACT 14.8 mmol/L (21.0-28.0); BG METHEMOGLOBIN 0.3 % (0.5-1.5); BG OXYGEN SATURATION 99.8 % (94.0-98.0); BG OXYHEMOGLOBIN 99.2 % (94.0-98.0); BG PCO2 22.2 mmHg (32.0-45.0); BG PEEP (cmH2O) 5.0 cmH2O; BG PH 7.443 (7.350-7.450); BG PO2 341.9 mmHg (83.0-108.0); BG SAMPLE SITE ALINE; BG TIDAL VOLUME(mL) 450.0 mL; BG TOTAL HEMOGLOBIN 9.1 g/dL (12.0-16.0); BG VENT MODE VENT - AC; BG VENT RATE 26.0 set
[2025-06-11] MEDS ORDERED: CEFEPIME 2GM IN DEXT 5% 100ML IV SCH (14:30)
[2025-06-11] MEDS: IPRATROPIUM/ALBUTEROL 0.5-3(2.5)MG/3ML NEB HHN SCH (14:42)
[2025-06-11 15:34] LABS: LYMPHOCYTES % MANUAL 3.0 % (20.0-60.0); MONOCYTES % MANUAL 3.0 % (2.0-8.0); NEUTROPHILS % MANUAL 94.0 % (45.0-75.0); PLATELET ESTIMATE MARKEDLY DECREASED
[2025-06-11] MEDS: CEFEPIME 1GM PREMIX 50ML IV SCH (17:26)
[2025-06-11] MEDS: DOXYCYCLINE 100MG/100ML 100 ML IV SCH (17:26)
[2025-06-11] MEDS: DAPTOMYCIN 350 MG in SODIUM CHLORIDE 0.9% 50 ML IV SCH (19:06)
[2025-06-12] VITALS (103 sets, daily range): BP systolic 126–149; BP diastolic 62–100; PULSE 6–99; RESP 14–26; TEMP 96–101; O2SAT 95–100
[2025-06-12 07:35] LABS: HEMATOCRIT. 25.7 % (36.0-48.0); HEMOGLOBIN. 8.6 g/dL (12.0-16.0); MEAN PLATELET VOLUME 11.8 fl (7.4-10.4); RED BLOOD CELL COUNT 2.86 mill/uL (4.2-5.4); RED CELL DISTRIBUTION WIDTH 16.8 % (11.6-14.6)
[2025-06-12 07:52] LABS: CREATININE 2.5 mg/dL (0.6-1.0); UREA NITROGEN BLOOD 77 mg/dL (9-23)
[2025-06-12 07:54] LABS: ASPARTATE AMINOTRANSFERASE 46 IU/L (<34); BILIRUBIN TOTAL 0.7 mg/dL (0.1-1.0); PHOSPHORUS 2.8 mg/dL (2.5-4.9); PROTEIN TOTAL 5.9 g/dL (6.0-8.3)
[2025-06-12 09:01] LABS: BG BASE EXCESS -7.1 mmol/L (-2.0-3.0); BG CARBOXYHEMOGLOBIN 0.3 % (0.5-1.5); BG DEOXYHEMOGLOBIN 0.5 % (0.0-5.0); BG FRACTION INSPIRED OXYGEN 50; BG HCO3 ACT 16.3 mmol/L (21.0-28.0); BG METHEMOGLOBIN 0.3 % (0.5-1.5); BG OXYGEN SATURATION 99.5 % (94.0-98.0); BG OXYHEMOGLOBIN 98.9 % (94.0-98.0); BG PCO2 26.2 mmHg (32.0-45.0); BG PEEP (cmH2O) 5.0 cmH2O; BG PH 7.412 (7.350-7.450); BG PO2 194.3 mmHg (83.0-108.0); BG SAMPLE SITE ALINE; BG TIDAL VOLUME(mL) 450.0 mL; BG TOTAL HEMOGLOBIN 9.6 g/dL (12.0-16.0); BG VENT MODE VENT - AC; BG VENT RATE 20.0 set
[2025-06-12 09:55] LABS: BAND% 23.0 % (1.0-6.0); LYMPHOCYTES % MANUAL 6.0 % (20.0-60.0); MONOCYTES % MANUAL 1.0 % (2.0-8.0); NEUTROPHILS % MANUAL 70.0 % (45.0-75.0)
[2025-06-12 09:56] LABS: PLATELET ESTIMATE MARKEDLY DECREASED
[2025-06-12 09:57] LABS: PLATELET 48 x1000/uL (130-400)
[2025-06-12] MEDS: BLOOD SUGAR DIAGNOSTIC STRIP TEST SCH (18:10)
[2025-06-12] MEDS: DOXYCYCLINE 100MG/100ML 100 ML IV SCH (18:19)
[2025-06-12] MEDS: INSULIN LISPRO 100 UNITS/ML SUBCUT SCH (18:23)
[2025-06-12] MEDS: ACETAMINOPHEN 650MG/20.3ML UDC NG PRN (20:00)
[2025-06-13] VITALS (112 sets, daily range): BP systolic 37–209; BP diastolic 14–121; PULSE 67–128; RESP 13–33; TEMP 34.8–37.6; O2SAT 34–100
[2025-06-13 08:41] LABS: BG BASE EXCESS -6.2 mmol/L (-2.0-3.0); BG CARBOXYHEMOGLOBIN 0.4 % (0.5-1.5); BG DEOXYHEMOGLOBIN 0.5 % (0.0-5.0); BG FRACTION INSPIRED OXYGEN 50; BG HCO3 ACT 16.9 mmol/L (21.0-28.0); BG METHEMOGLOBIN 0.3 % (0.5-1.5); BG OXYGEN SATURATION 99.5 % (94.0-98.0); BG OXYHEMOGLOBIN 98.8 % (94.0-98.0); BG PCO2 25.3 mmHg (32.0-45.0); BG PEEP (cmH2O) 5.0 cmH2O; BG PH 7.443 (7.350-7.450); BG PO2 231.6 mmHg (83.0-108.0); BG SAMPLE SITE ALINE; BG TIDAL VOLUME(mL) 450.0 mL; BG TOTAL HEMOGLOBIN 8.6 g/dL (12.0-16.0); BG VENT MODE VENT - AC; BG VENT RATE 20.0 set
[2025-06-13 13:07] LABS: RED BLOOD CELL COUNT 2.89 mill/uL (4.2-5.4); RED CELL DISTRIBUTION WIDTH 17.2 % (11.6-14.6)
[2025-06-13 13:16] LABS: CREATININE 2.6 mg/dL (0.6-1.0); UREA NITROGEN BLOOD 78.0 mg/dL (9-23)
[2025-06-13 13:27] LABS: PLATELET 38 x1000/uL (130-400)
[2025-06-13] MEDS: NOREPINEPHRINE 32 MG in DEXT 5% WATER 218 ML IV PRN (16:46)
[2025-06-13] MEDS: METHYLPREDNISOLONE SOD SUCC 40MG/ML (ACT-O-VIAL) IV SCH (20:28)
[2025-06-14] VITALS (100 sets, daily range): BP systolic 63–148; BP diastolic 14–91; PULSE 72–105; RESP 14–26; TEMP 35.6–37.4; O2SAT 91–100
[2025-06-14 05:49] LABS: HEMATOCRIT. 23.9 % (36.0-48.0); HEMOGLOBIN. 8.1 g/dL (12.0-16.0); MEAN PLATELET VOLUME 9.7 fl (7.4-10.4); RED BLOOD CELL COUNT 2.68 mill/uL (4.2-5.4); RED CELL DISTRIBUTION WIDTH 15.9 % (11.6-14.6)
[2025-06-14 06:17] LABS: UREA NITROGEN BLOOD 55.0 mg/dL (9-23)
[2025-06-14 06:22] LABS: CREATININE 1.7 mg/dL (0.6-1.0)
[2025-06-14 06:36] LABS: PLATELET 36 x1000/uL (130-400)
[2025-06-14] MEDS: POTASSIUM CHLORIDE 20MEQ/PACKET PO NR (09:31)
[2025-06-14] MEDS: METHYLPREDNISOLONE SOD SUCC 40MG/ML (ACT-O-VIAL) IV SCH (09:31)
[2025-06-14 11:19] LABS: BAND% 21.0 % (1.0-6.0); LYMPHOCYTES % MANUAL 2.0 % (20.0-60.0); MONOCYTES % MANUAL 3.0 % (2.0-8.0); MYELOCYTES % 1.0 % (0-0); NEUTROPHILS % MANUAL 73.0 % (45.0-75.0); PLATELET ESTIMATE MARKEDLY DECREASED
[2025-06-15] VITALS (106 sets, daily range): BP systolic 75–196; BP diastolic 30–101; PULSE 69–118; RESP 19–24; TEMP 33.8–37.2; O2SAT 77–100
[2025-06-15 06:11] LABS: BASOPHILS % 0.2 % (0.0-2.0); EOSINOPHILS % 0.1 % (0.0-5.0); HEMATOCRIT. 23.6 % (36.0-48.0); HEMOGLOBIN. 7.8 g/dL (12.0-16.0); LYMPHOCYTES % 12.6 % (20.0-50.0); MEAN PLATELET VOLUME 10.0 fl (7.4-10.4); MONOCYTES % 3.0 % (2.0-8.0); NEUTROPHILS % 84.1 % (40.0-76.0); RED BLOOD CELL COUNT 2.64 mill/uL (4.2-5.4); RED CELL DISTRIBUTION WIDTH 16.2 % (11.6-14.6)
[2025-06-15 06:18] LABS: INR 1.2
[2025-06-15 06:23] LABS: CREATININE 2.0 mg/dL (0.6-1.0); UREA NITROGEN BLOOD 66 mg/dL (9-23)
[2025-06-15 06:25] LABS: PHOSPHORUS 3.1 mg/dL (2.5-4.9)
[2025-06-15 06:46] LABS: PLATELET 33 x1000/uL (130-400)
[2025-06-15] MEDS ORDERED: LIDOCAINE HCL/EPINEPHRINE 1%-EPI 1:100,000 20ML VIAL ONE (07:32)
[2025-06-15 08:42] LABS: BG BASE EXCESS -3.1 mmol/L (-2.0-3.0); BG CARBOXYHEMOGLOBIN 1.0 % (0.5-1.5); BG DEOXYHEMOGLOBIN 0.5 % (0.0-5.0); BG FRACTION INSPIRED OXYGEN 40; BG HCO3 ACT 19.2 mmol/L (21.0-28.0); BG METHEMOGLOBIN 0.1 % (0.5-1.5); BG OXYGEN SATURATION 99.5 % (94.0-98.0); BG OXYHEMOGLOBIN 98.4 % (94.0-98.0); BG PCO2 24.6 mmHg (32.0-45.0); BG PEEP (cmH2O) 5.0 cmH2O; BG PH 7.511 (7.350-7.450); BG PO2 177.3 mmHg (83.0-108.0); BG SAMPLE SITE ALINE; BG TIDAL VOLUME(mL) 450.0 mL; BG TOTAL HEMOGLOBIN 7.8 g/dL (12.0-16.0); BG TOTAL RESPIRATORY RATE 20 b/min; BG VENT MODE VENT - AC; BG VENT RATE 20.0 set
[2025-06-15] MEDS ORDERED: ROCURONIUM BROMIDE 10MG/ML VIAL 5ML IV ONE (11:57)
[2025-06-15] MEDS ORDERED: FENTANYL CITRATE/PF 50MCG/ML 2ML VIAL ONE (11:58)
[2025-06-15] MEDS ORDERED: PROPOFOL 200MG/20ML VIAL IV ONE (11:58)
[2025-06-15] MEDS ORDERED: EPINEPHRINE 0.1MG/ML (1:10,000) 10ML SYR ONE (12:14)
[2025-06-15] MEDS ORDERED: PHENYLEPHRINE 50MG/250ML PMX 250 ML IV PRN (13:00)
[2025-06-15] MEDS ORDERED: DOPAMINE 400MG/250ML PREMIX 250 ML IV PRN (13:15)
[2025-06-15] MEDS: ALBUMIN HUMAN 25GM/500ML (5%) IV NR (13:23)
[2025-06-15 13:49] LABS: BG BASE EXCESS -5.8 mmol/L (-2.0-3.0); BG CARBOXYHEMOGLOBIN 0.3 % (0.5-1.5); BG DEOXYHEMOGLOBIN 8.4 % (0.0-5.0); BG FRACTION INSPIRED OXYGEN 40; BG HCO3 ACT 18.9 mmol/L (21.0-28.0); BG METHEMOGLOBIN 0.3 % (0.5-1.5); BG OXYGEN SATURATION 91.5 % (94.0-98.0); BG OXYHEMOGLOBIN 91.0 % (94.0-98.0); BG PCO2 32.9 mmHg (32.0-45.0); BG PEEP (cmH2O) 5.0 cmH2O; BG PH 7.377 (7.350-7.450); BG PO2 65.3 mmHg (83.0-108.0); BG SAMPLE SITE ALINE; BG TIDAL VOLUME(mL) 450.0 mL; BG TOTAL HEMOGLOBIN 5.1 g/dL (12.0-16.0); BG TOTAL RESPIRATORY RATE 20 b/min; BG VENT MODE VENT - AC; BG VENT RATE 20.0 set
[2025-06-15 16:40] LABS: RED BLOOD CELL COUNT 1.52 mill/uL (4.2-5.4); RED CELL DISTRIBUTION WIDTH 17.0 % (11.6-14.6)
[2025-06-15 16:53] LABS: PLATELET 50 x1000/uL (130-400)
[2025-06-16] VITALS (98 sets, daily range): BP systolic 115–147; BP diastolic 71–94; PULSE 71–89; RESP 16–30; TEMP 35.2–36.2; O2SAT 90–100
[2025-06-16 03:28] LABS: BASOPHILS % 0.3 % (0.0-2.0); EOSINOPHILS % 0.0 % (0.0-5.0); HEMATOCRIT. 33.2 % (36.0-48.0); LYMPHOCYTES % 10.9 % (20.0-50.0); MEAN PLATELET VOLUME 8.8 fl (7.4-10.4); MONOCYTES % 3.7 % (2.0-8.0); NEUTROPHILS % 85.1 % (40.0-76.0); RED BLOOD CELL COUNT 3.76 mill/uL (4.2-5.4); RED CELL DISTRIBUTION WIDTH 14.5 % (11.6-14.6)
[2025-06-16 03:34] LABS: PLATELET 33 x1000/uL (130-400)
[2025-06-16 03:35] LABS: HEMOGLOBIN. 11.2 g/dL (12.0-16.0)
[2025-06-16 06:41] LABS: CREATININE 2.1 mg/dL (0.6-1.0); UREA NITROGEN BLOOD 73 mg/dL (9-23)
[2025-06-16 06:43] LABS: PHOSPHORUS 6.1 mg/dL (2.5-4.9)
[2025-06-16 09:03] LABS: BG BASE EXCESS -7.8 mmol/L (-2.0-3.0); BG CARBOXYHEMOGLOBIN 0.3 % (0.5-1.5); BG DEOXYHEMOGLOBIN 0.7 % (0.0-5.0); BG FRACTION INSPIRED OXYGEN 50; BG HCO3 ACT 16.1 mmol/L (21.0-28.0); BG METHEMOGLOBIN 0.3 % (0.5-1.5); BG OXYGEN SATURATION 99.3 % (94.0-98.0); BG OXYHEMOGLOBIN 98.7 % (94.0-98.0); BG PCO2 28.2 mmHg (32.0-45.0); BG PEEP (cmH2O) 5.0 cmH2O; BG PH 7.375 (7.350-7.450); BG PO2 200.8 mmHg (83.0-108.0); BG SAMPLE SITE ALINE; BG TIDAL VOLUME(mL) 450.0 mL; BG TOTAL HEMOGLOBIN 11.7 g/dL (12.0-16.0); BG VENT MODE VENT - AC; BG VENT RATE 20.0 set
[2025-06-16] MEDS: MAGNESIUM 2 G PREMIX 50 ML IV ONE (11:09)
[2025-06-17] VITALS (104 sets, daily range): BP systolic 81–156; BP diastolic 51–92; PULSE 62–92; RESP 12–29; TEMP 35.2–37.6; O2SAT 97–100
[2025-06-17] MEDS: KCL 20MEQ/100ML PREMIX 100 ML IV SCH (08:25)
[2025-06-17] MEDS: IPRATROPIUM/ALBUTEROL 0.5-3(2.5)MG/3ML NEB HHN SCH (14:56)
[2025-06-17] MEDS: DEXTROSE 50% WATER 50ML SYRINGE IV PRN (18:39)
[2025-06-18] VITALS (61 sets, daily range): BP systolic 100–139; BP diastolic 68–88; PULSE 60–76; RESP 14–28; TEMP 36.3–36.9; O2SAT 99–100
[2025-06-18 06:58] LABS: HEMATOCRIT. 33.1 % (36.0-48.0); HEMOGLOBIN. 11.0 g/dL (12.0-16.0); MEAN PLATELET VOLUME 9.5 fl (7.4-10.4); RED BLOOD CELL COUNT 3.65 mill/uL (4.2-5.4); RED CELL DISTRIBUTION WIDTH 15.3 % (11.6-14.6)
[2025-06-18 07:21] LABS: CREATININE 2.0 mg/dL (0.6-1.0)
[2025-06-18 07:22] LABS: PLATELET 33 x1000/uL (130-400)
[2025-06-18 07:23] LABS: UREA NITROGEN BLOOD 78 mg/dL (9-23)
[2025-06-18 07:24] LABS: PHOSPHORUS 5.7 mg/dL (2.5-4.9)
[2025-06-18 15:57] LABS: LYMPHOCYTES % MANUAL 8.0 % (20.0-60.0); MONOCYTES % MANUAL 3.0 % (2.0-8.0); NEUTROPHILS % MANUAL 89.0 % (45.0-75.0); PLATELET ESTIMATE MARKEDLY DECREASED
[2025-06-18] MEDS: DEXT 10% WATER 1,000 ML IV SCH (17:30)
[2025-06-18] MEDS: INSULIN LISPRO 100 UNITS/ML SUBCUT SCH (20:00)
[2025-06-18] MEDS: BLOOD SUGAR DIAGNOSTIC STRIP TEST SCH (20:28)
[2025-06-19] VITALS (31 sets, daily range): BP systolic 92–133; BP diastolic 76–102; PULSE 52–62; RESP 14–28; TEMP 36.1–37; O2SAT 88–100
[2025-06-19 10:34] LABS: CREATININE 2.3 mg/dL (0.6-1.0); UREA NITROGEN BLOOD 83.0 mg/dL (9-23)
[2025-06-20] VITALS (23 sets, daily range): BP systolic 84–131; BP diastolic 66–97; PULSE 58–63; RESP 11–30; TEMP 35.2–36.3; O2SAT 96–100
[2025-06-20] MEDS: MIDODRINE HCL 5MG TABLET PO SCH (11:01)
[2025-06-20] MEDS: KCL 20MEQ/100ML PREMIX 100 ML IV ONE (17:46)
[2025-06-20] MEDS: POTASSIUM CHLORIDE 20MEQ/PACKET ONE (17:46)
[2025-06-20] MEDS: METHYLPREDNISOLONE SOD SUCC 40MG/ML (ACT-O-VIAL) ONE (17:46)
[2025-06-20] MEDS: DEXT 10% WATER 1,000 ML IV SCH (17:48)
[2025-06-21] VITALS (43 sets, daily range): BP systolic 64–123; BP diastolic 42–92; PULSE 55–74; RESP 14–28; TEMP 35–36.44736; O2SAT 96–100
[2025-06-21] MEDS: MIDODRINE HCL 5MG TABLET PO NR (08:15)
[2025-06-21] MEDS: MIDODRINE HCL 5MG TABLET PO SCH (15:37)
[2025-06-22] VITALS (30 sets, daily range): BP systolic 68–126; BP diastolic 59–88; PULSE 58–79; RESP 13–30; TEMP 35.6–36.3; O2SAT 94–100
[2025-06-22] MEDS: MIDODRINE HCL 5MG TABLET PO PRN (09:13)
[2025-06-22] MEDS: SODIUM CHLORIDE 0.9% 250 ML IV NR (12:51)
[2025-06-22] MEDS: ALBUMIN HUMAN 25GM/500ML (5%) IV NR (12:52)
[2025-06-22] MEDS: MIDODRINE HCL 5MG TABLET PO SCH (15:13)
[2025-06-23] VITALS (23 sets, daily range): BP systolic 89–144; BP diastolic 68–97; PULSE 54–61; RESP 13–38; TEMP 35.9–36.2; O2SAT 95–100
[2025-06-23] MEDS: DEXTROSE 10% WATER 1,000 ML IV SCH (09:57)
[2025-06-23] MEDS: METOCLOPRAMIDE HCL 10MG/2ML VIAL IV SCH (22:53)
[2025-06-24] VITALS (24 sets, daily range): BP systolic 70–104; BP diastolic 54–74; PULSE 60–78; RESP 14–28; TEMP 36.2–36.4; O2SAT 99–100
[2025-06-24] MEDS: IPRATROPIUM/ALBUTEROL 0.5-3(2.5)MG/3ML NEB HHN SCH (12:22)
[2025-06-24 12:50] LABS: CREATININE 1.8 mg/dL (0.6-1.0); UREA NITROGEN BLOOD 73.0 mg/dL (9-23)
[2025-06-24 13:34] LABS: HEMATOCRIT. 30.3 % (36.0-48.0); HEMOGLOBIN. 10.1 g/dL (12.0-16.0); MEAN PLATELET VOLUME 10.4 fl (7.4-10.4); RED BLOOD CELL COUNT 3.42 mill/uL (4.2-5.4); RED CELL DISTRIBUTION WIDTH 16.2 % (11.6-14.6)
[2025-06-24 14:18] LABS: PLATELET 37 x1000/uL (130-400)
[2025-06-24] MEDS ORDERED: POTASSIUM CHLORIDE 20MEQ TABLET SR PO SCH (15:00)
[2025-06-24] MEDS: POTASSIUM CHLORIDE 20MEQ/PACKET GT SCH (15:08)
[2025-06-24 21:09] LABS: LYMPHOCYTES % MANUAL 7.0 % (20.0-60.0); NEUTROPHILS % MANUAL 93.0 % (45.0-75.0); PLATELET ESTIMATE MARKEDLY DECREASED
[2025-06-24] MEDS: VANCOMYCIN 125MG/2.5ML ORAL SYR PO SCH (22:47)
[2025-06-25] VITALS (27 sets, daily range): BP systolic 67–123; BP diastolic 54–91; PULSE 65–85; RESP 13–28; TEMP 36.2–36.8; O2SAT 98–100
[2025-06-25] MEDS ORDERED: VANCOMYCIN HCL 1GM VIAL PO SCH
[2025-06-25] MEDS ORDERED: CEFE1FRO2 IV (18:20)
[2025-06-25] MEDS ORDERED: DAPT500F IV (18:20)
[2025-06-25] MEDS ORDERED: VANJ5 PO (18:20)
== END 2025-06-25 20:20 | DRG 5 ==
LOC: ER 10:10 → CVICU 12:31 → EDBEDREQTM 12:36 → EDBEDREQ 12:36 → ENRESERV 12:57 → CVICU 05-26 10:48 → 5EST 06-18 13:00
PROVIDERS: ADMIT Internal Medicine; ATTEND Internal Medicine
PROC: 02HV33Z Insertion of Infusion Device into Superior Vena Cava, Percutaneous Approach (ICD-10-PCS; 2025-05-22)
PROC: B548ZZA Ultrasonography of Superior Vena Cava, Guidance (ICD-10-PCS; 2025-05-22)
PROC: 5A1D70Z Performance of Urinary Filtration, Intermittent, Less than 6 Hours Per Day (ICD-10-PCS; 2025-05-23)
PROC: 5A1D70Z Performance of Urinary Filtration, Intermittent, Less than 6 Hours Per Day (ICD-10-PCS; 2025-05-25)
PROC: 30233N1 Transfusion of Nonautologous Red Blood Cells into Peripheral Vein, Percutaneous Approach (ICD-10-PCS; 2025-05-26)
PROC: 5A1D70Z Performance of Urinary Filtration, Intermittent, Less than 6 Hours Per Day (ICD-10-PCS; 2025-05-27)
PROC: 5A09357 Assistance with Respiratory Ventilation, Less than 24 Consecutive Hours, Continuous Positive Airway Pressure (ICD-10-PCS; 2025-05-27)
PROC: 5A1D70Z Performance of Urinary Filtration, Intermittent, Less than 6 Hours Per Day (ICD-10-PCS; 2025-05-29)
PROC: 30233R1 Transfusion of Nonautologous Platelets into Peripheral Vein, Percutaneous Approach (ICD-10-PCS; 2025-05-30)
PROC: 5A09357 Assistance with Respiratory Ventilation, Less than 24 Consecutive Hours, Continuous Positive Airway Pressure (ICD-10-PCS; 2025-05-30)
PROC: 5A1D70Z Performance of Urinary Filtration, Intermittent, Less than 6 Hours Per Day (ICD-10-PCS; 2025-05-31)
PROC: 5A1D70Z Performance of Urinary Filtration, Intermittent, Less than 6 Hours Per Day (ICD-10-PCS; 2025-06-03)
PROC: 5A1D70Z Performance of Urinary Filtration, Intermittent, Less than 6 Hours Per Day (ICD-10-PCS; 2025-06-05)
PROC: 0DB78ZX Excision of Stomach, Pylorus, Via Natural or Artificial Opening Endoscopic, Diagnostic (ICD-10-PCS; 2025-06-06)
PROC: 0DH63UZ Insertion of Feeding Device into Stomach, Percutaneous Approach (ICD-10-PCS; 2025-06-06)
PROC: 5A1D70Z Performance of Urinary Filtration, Intermittent, Less than 6 Hours Per Day (ICD-10-PCS; 2025-06-07)
PROC: 5A1955Z Respiratory Ventilation, Greater than 96 Consecutive Hours (ICD-10-PCS; 2025-06-10)
PROC: 5A12012 Performance of Cardiac Output, Single, Manual (ICD-10-PCS; 2025-06-10)
PROC: 5A1D70Z Performance of Urinary Filtration, Intermittent, Less than 6 Hours Per Day (ICD-10-PCS; 2025-06-11)
PROC: 5A1D70Z Performance of Urinary Filtration, Intermittent, Less than 6 Hours Per Day (ICD-10-PCS; 2025-06-13)
PROC: 0B110F4 Bypass Trachea to Cutaneous with Tracheostomy Device, Open Approach (ICD-10-PCS; principal; 2025-06-15)
PROC: 5A1D70Z Performance of Urinary Filtration, Intermittent, Less than 6 Hours Per Day (ICD-10-PCS; 2025-06-17)
PROC: 5A1D70Z Performance of Urinary Filtration, Intermittent, Less than 6 Hours Per Day (ICD-10-PCS; 2025-06-19)
PROC: 5A1D70Z Performance of Urinary Filtration, Intermittent, Less than 6 Hours Per Day (ICD-10-PCS; 2025-06-21)
PROC: 5A1D70Z Performance of Urinary Filtration, Intermittent, Less than 6 Hours Per Day (ICD-10-PCS; 2025-06-25)
DX: A41.9 Sepsis, unspecified organism (principal); R65.21 Severe sepsis with septic shock; G92.8 Other toxic encephalopathy; L89.154 Pressure ulcer of sacral region, stage 4; L89.314 Pressure ulcer of right buttock, stage 4; R57.1 Hypovolemic shock; L89.324 Pressure ulcer of left buttock, stage 4; E43 Unspecified severe protein-calorie malnutrition; D69.6 Thrombocytopenia, unspecified; N18.6 End stage renal disease; I12.0 Hypertensive chronic kidney disease with stage 5 chronic kidney disease or end stage renal disease; Z99.2 Dependence on renal dialysis; Z99.11 Dependence on respirator [ventilator] status; J96.01 Acute respiratory failure with hypoxia; J18.9 Pneumonia, unspecified organism; I46.9 Cardiac arrest, cause unspecified; B95.2 Enterococcus as the cause of diseases classified elsewhere; N39.0 Urinary tract infection, site not specified; D63.1 Anemia in chronic kidney disease; E11.22 Type 2 diabetes mellitus with diabetic chronic kidney disease; K74.60 Unspecified cirrhosis of liver; E87.20 Acidosis, unspecified; R64 Cachexia; E11.649 Type 2 diabetes mellitus with hypoglycemia without coma; D63.8 Anemia in other chronic diseases classified elsewhere; K25.9 Gastric ulcer, unspecified as acute or chronic, without hemorrhage or perforation; S61.502A Unspecified open wound of left wrist, initial encounter; R62.7 Adult failure to thrive; Z68.1 Body mass index [BMI] 19.9 or less, adult; I95.89 Other hypotension; L85.3 Xerosis cutis; Z16.21 Resistance to vancomycin; R13.10 Dysphagia, unspecified; E87.6 Hypokalemia; L89.896 Pressure-induced deep tissue damage of other site; Z93.1 Gastrostomy status; E61.1 Iron deficiency; K29.30 Chronic superficial gastritis without bleeding; K29.80 Duodenitis without bleeding; R00.1 Bradycardia, unspecified; E78.5 Hyperlipidemia, unspecified
CPT/HCPCS: 31720; 36415; 36573; 36600; 70360; 71045; 74018; 76700; 80048; 80051; 80053; 80061; 80076; 80202; 80305; 81003; 82140; 82375; 82550; 82607; 82746; 82805; 82962; 83036; 83540; 83550; 83605; 83735; 84100; 84132; 84134; 84145; 84443; 85014; 85018; 85025; 85027; 85049; 86705; 86709; 86850; 86900; 86920; 87070; 87077; 87106; 87186; 87340; 88305; 88312; 88313; 90935; 92950; 93005; 93306; 93970; 94002; 94003; 94070; 94640; 94660; 94664; 94760; 96361; 96365; 96368; 99291; A4606; A4615; C1725; J0690; J0692; J0878; J1265; J1815; J2003; J2004; J2371; J2470; J2543; J2704; J2765; J2919; J3010; J3373; J3475; J3480; J3490; J7030; J7040; J7060; P9016; P9034; P9041; A4217